=== PATIENT | female | born 1945 | race Caucasian/White ===

== ENCOUNTER 2020-07-31 07:12 | Emergency (ER) | payer BC, OTHER ==
[~2020-07-31] VITALS: Ht 152.4 cm; Wt 57.8 kg
[2020-07-31 07:19] VITALS: BP 162/70
== END 2020-07-31 08:10 | disposition home or self-care (01) ==
LOC: ER 07:13
DX: N81.2 Incomplete uterovaginal prolapse (principal)
CPT/HCPCS: 99284

== ENCOUNTER 2021-05-29 14:43 | Emergency (ER) | payer BC, OTHER ==
[~2021-05-29] VITALS: Ht 161.3 cm; Wt 56.0 kg
[2021-05-29] MEDS ORDERED: normal saline 1000ML IV soln IVB ONE (14:55)
[2021-05-29 15:32] LABS: BASOPHILS % (AUTO) 0.9 % (0-1); EOSINOPHILS % (AUTO) 0 % (0-6); HEMATOCRIT 41.9 % (35.0-45.0); HEMOGLOBIN 14.1 g/dl (12.0-16.0); LYMPHOCYTES # (AUTO) 0.6 X10'3 (1.1-4.8); LYMPHOCYTES % (AUTO) 19.1 % (21-51); MEAN CORPUSCULAR HEMOGLOBIN 28.9 PG (27.0-31.0); MEAN CORPUSCULAR HGB CONC 33.7 g/dL (33.0-36.5); MEAN CORPUSCULAR VOLUME 85.8 FL (78-98); MEAN PLATELET VOLUME 8.1 FL (7.4-10.4); MONOCYTES # (AUTO) 0.2 X10'3 (0-0.9); MONOCYTES % (AUTO) 6.7 % (2-12); NEUTROPHILS # (AUTO) 2.3 X10'3 (1.8-7.7); NEUTROPHILS % (AUTO) 73.3 % (42-75); PLATELET COUNT 149 X10'3 (140-440); RED BLOOD COUNT 4.89 X10'6 (4.20-5.60); RED CELL DISTRIBUTION WIDTH 14.4 % (11.5-14.5); WHITE BLOOD COUNT 3.1 X10'3 (4.5-11.0)
[2021-05-29 15:41] LABS: ALANINE AMINOTRANSFERASE 30 U/L (12-78); ALBUMIN 3.3 G/DL (3.4-5.0); ALBUMIN/GLOBULIN RATIO 0.9 (1.1-1.5); ALKALINE PHOSPHATASE 64 IU/L (46-116); ANION GAP 15 (8-16); ASPARTATE AMINO TRANSFERASE 78 U/L (10-37); BILIRUBIN,TOTAL 0.5 MG/DL (0.1-1.0); BLOOD UREA NITROGEN 24 MG/DL (7-18); BUN/CREATININE RATIO 26.7 (6.6-38.0); CALCIUM 8.1 MG/DL (8.5-10.1); CHLORIDE 98 MMOL/L (99-107); GLUCOSE 108 MG/DL (70-104); POTASSIUM 4.7 MMOL/L (3.5-5.1); SODIUM 133 MMOL/L (135-145); TOTAL CARBON DIOXIDE 19.8 MMOL/L (24-32); TOTAL PROTEIN 7.1 G/DL (6.4-8.2); eGFR 61 ML/MIN
[2021-05-29 16:45] VITALS: BP 130/65
== END 2021-05-29 17:02 | disposition home or self-care (01) ==
LOC: ER 14:45
DX: U07.1 COVID-19 (principal); R19.7 Diarrhea, unspecified; E86.0 Dehydration; R63.0 Anorexia; F17.200 Nicotine dependence, unspecified, uncomplicated
CPT/HCPCS: 36415; 80053; 85025; 87635; 99283; C9803; J7030

== ENCOUNTER 2021-06-09 08:44 | Inpatient (IN) | payer BC, OTHER ==
[~2021-06-09] VITALS: Ht 152.4 cm; Wt 55.0 kg
[2021-06-09] MEDS ORDERED: dexamethasone sod phosphate 10mg/ml inj IV STA (10:28)
[2021-06-09 10:38] LABS: BASOPHILS # (AUTO) 0.1 X10'3 (0-0.2); BASOPHILS % (AUTO) 0.4 % (0-1); EOSINOPHILS % (AUTO) 0.1 % (0-6); HEMATOCRIT 42.4 % (35.0-45.0); HEMOGLOBIN 14.9 g/dl (12.0-16.0); LYMPHOCYTES # (AUTO) 0.4 X10'3 (1.1-4.8); LYMPHOCYTES % (AUTO) 2.3 % (21-51); MEAN CORPUSCULAR HEMOGLOBIN 29.9 PG (27.0-31.0); MEAN CORPUSCULAR HGB CONC 35.1 g/dL (33.0-36.5); MEAN CORPUSCULAR VOLUME 85.1 FL (78-98); MEAN PLATELET VOLUME 8.7 FL (7.4-10.4); MONOCYTES # (AUTO) 0.7 X10'3 (0-0.9); MONOCYTES % (AUTO) 4.7 % (2-12); NEUTROPHILS # (AUTO) 14.4 X10'3 (1.8-7.7); NEUTROPHILS % (AUTO) 92.5 % (42-75); PLATELET COUNT 257 X10'3 (140-440); RED BLOOD COUNT 4.98 X10'6 (4.20-5.60); RED CELL DISTRIBUTION WIDTH 13.9 % (11.5-14.5); WHITE BLOOD COUNT 15.6 X10'3 (4.5-11.0)
[2021-06-09 10:47] LABS: AMMONIA < 10 UMOL/L (11-32)
[2021-06-09 10:48] LABS: ALANINE AMINOTRANSFERASE 30 U/L (12-78); ALBUMIN 2.1 G/DL (3.4-5.0); ALBUMIN/GLOBULIN RATIO 0.4 (1.1-1.5); ALKALINE PHOSPHATASE 123 IU/L (46-116); ANION GAP 15 (8-16); ASPARTATE AMINO TRANSFERASE 24 U/L (10-37); BILIRUBIN,TOTAL 0.9 MG/DL (0.1-1.0); BLOOD UREA NITROGEN 35 MG/DL (7-18); BUN/CREATININE RATIO 36.5 (6.6-38.0); CALCIUM 8.8 MG/DL (8.5-10.1); CHLORIDE 109 MMOL/L (99-107); CREATININE 0.96 MG/DL (0.40-0.90); GLUCOSE 148 MG/DL (70-104); POTASSIUM 3.4 MMOL/L (3.5-5.1); SODIUM 149 MMOL/L (135-145); TOTAL CARBON DIOXIDE 24.7 MMOL/L (24-32); TOTAL PROTEIN 7.7 G/DL (6.4-8.2); eGFR 57 ML/MIN
[2021-06-09 10:52] LABS: ETHANOL < 0.010 GM/DL (0.0-0.010); TROPONIN I < 0.04 NG/ML (0.0-0.05)
[2021-06-09 10:56] LABS: LACTIC SEPSIS 2.7 MMOL/L (0.4-2.0)
[2021-06-09 11:08] LABS: D-DIMER 8.87 MG/L FEU (0-0.50)
[2021-06-09] MEDS ORDERED: heparin 10,000 units/1 ML INJ IV ONE ×2 (11:30→11:35)
[2021-06-09] MEDS: heparin 25,000 UNIT/250ml bag 250 ML IV SCH ×2 (11:30→15:00)
--- NOTE | 2021-06-09 11:55 | NUR ---
PT PLACED IN SOFT WRIST RESTRAINTS PER MD ORDER FOR REMOVING OXYGEN
[2021-06-09 12:00] LABS: PARTIAL THROMBOPLASTIN TIME 29 SECONDS (22-32)
[2021-06-09] MEDS ORDERED: iohexol 350MG/ML 100ml bottle IV ONE (12:35)
--- NOTE | 2021-06-09 14:12 | NUR ---
PT BED CHANGED WHILE ON CT TABLE, RESTRAINTS PLACED BACK ON TO PT AND RETURNED TO ER.
--- NOTE | 2021-06-09 14:15 | NUR ---
AND A 20 G WAS PLACED IN RT AC AND WRAPPED WITH COBAN.
[2021-06-09 16:27] LABS: ABG BASE EXCESS -2.1 mmol/L (-2.0-2.0); ABG HCO3 19.1 mmol/L (22.0-26.0); ABG OXYGEN SATURATION 82.9 % (94-97); ABG PCO2 (T) 23.4 mmHg (32.0-45.0); ABG PO2 (T) 46.1 mmHg (75.0-100.0); ALLEN'S TEST POSITIVE; FCOHb 0.1 % (0.0-3.9); FMetHb 0.3 % (0.0-1.5); FO2Hb 82.6 % (94-97)
[2021-06-09] MEDS ORDERED: ESTR10TA9 VG (16:53)
[2021-06-09] MEDS ORDERED: ondansetron/PF 4mg/2ml inj IV PRN (17:30)
[2021-06-09] MEDS ORDERED: HYDROcodone/acetaminophen 10/325mg tab PO PRN (17:30)
[2021-06-09] MEDS ORDERED: potassium Cl 40MEQ/1/2NS 520ml 520 ML IV PRN ×2 (17:30)
[2021-06-09] MEDS ORDERED: magnesium 2GM in 50ml NS 50 ML IV PRN (17:30)
[2021-06-09] MEDS ORDERED: acetaminophen 650mg rectal suppository RC PRN (17:30)
[2021-06-09] MEDS ORDERED: potassium Cl 20 mEq SR tablet PO PRN ×2 (17:30)
[2021-06-09] MEDS ORDERED: HYDROcodone/acetaminophen 5mg/325mg tablet PO PRN (17:30)
[2021-06-09] MEDS ORDERED: morphine 2 MG/ML inj. syringe IV PRN (17:30)
[2021-06-09] MEDS ORDERED: magnesium hydroxide 30ml (MOM) UD suspension PO PRN (17:30)
[2021-06-09] MEDS ORDERED: mag hydrox/Alum hydrox/simeth 30ml oral suspension PO PRN (17:30)
[2021-06-09] MEDS ORDERED: PERFLUTREN PROTEIN-A MICROSPHR (Optison) 0.22 MG/ML 3ML VIAL IV PRN (17:30)
[2021-06-09] MEDS ORDERED: bisacodyl 10mg suppository rectal RC PRN (17:30)
[2021-06-09] MEDS ORDERED: magnesium 4gm in 100ml NS 100 ML IV PRN (17:30)
[2021-06-09] MEDS ORDERED: diphenhydrAMINE 25mg capsule PO PRN (17:30)
[2021-06-09] MEDS ORDERED: acetaminophen 325mg tablet PO PRN ×2 (17:30)
[2021-06-09] MEDS ORDERED: magnesium Cl slow-release 64mg tablet PO PRN (17:30)
--- NOTE | 2021-06-09 17:41 | NUR ---
PT CONSSTANTLY PULLS OXYGEN OFF. PT CURRENTLY RECEIVING HFNC AT 12 LITERS AND NRB
[2021-06-09] MEDS ORDERED: haloperidol lactate 5mg/ml inj IM ONE (18:45)
[2021-06-09 18:56] LABS: HEMOGLOBIN A1C 6.7 % (4.5-6.2)
[2021-06-09] MEDS: LORazepam 2 mg/ml vial IV PRN (19:00)
--- NOTE | 2021-06-09 19:25 | NUR ---
Patient given Haldol 5 mg IM and 1 mg Ativan IV. Patient is now sleeping vital signs improved.
[2021-06-09] MEDS: K and/or MAG REPLACEMENT MC SCH (20:00)
[2021-06-09] MEDS: docusate sod 100mg capsule PO SCH (20:00)
[2021-06-09 21:44] LABS: PARTIAL THROMBOPLASTIN TIME 128 SECONDS (22-32)
--- NOTE | 2021-06-09 21:59 | NUR ---
PTT 128 Heparin drip at 990 units stopped for 120 minutes per protocol at 2150.
[2021-06-10] MEDS: heparin 25,000 UNIT/250ml bag 250 ML IV SCH ×3 (00:22→23:21)
[2021-06-10] MEDS: dexamethasone 4mg/ml inj IV SCH ×2 (00:25→11:33)
[2021-06-10 02:00] VITALS: BP 115/73
[2021-06-10 03:06] LABS: D-DIMER 2.93 MG/L FEU (0-0.50); PARTIAL THROMBOPLASTIN TIME 32 SECONDS (22-32)
[2021-06-10] MEDS: heparin 10,000 units/1 ML INJ IV PRN (03:44)
--- NOTE | 2021-06-10 03:59 | NUR ---
PTT result 32. Gave heparin 4000U IV bolus and IV rate increased to 1000U/Hr. PTT ordered for 06/10/21 at 10:00. Unable to scan bag for administration.
[2021-06-10 06:00] VITALS: BP 115/74
[2021-06-10] MEDS: normal saline 1000ml 1,000 ML IV SCH ×2 (06:50→11:23)
--- NOTE | 2021-06-10 06:55 | NUR ---
Patient in room [facility] 4015B. I have received report from ASHISH BARTON and had the opportunity to ask questions and assume patient care.
[2021-06-10] MEDS: docusate sod 100mg capsule PO SCH ×2 (08:00→20:00)
[2021-06-10] MEDS: K and/or MAG REPLACEMENT MC SCH ×2 (08:00→20:00)
[2021-06-10 09:21] LABS: BASOPHILS % (AUTO) 0.2 % (0-1); EOSINOPHILS % (AUTO) 0.1 % (0-6); HEMATOCRIT 41.5 % (35.0-45.0); HEMOGLOBIN 13.7 g/dl (12.0-16.0); LYMPHOCYTES # (AUTO) 0.6 X10'3 (1.1-4.8); MEAN CORPUSCULAR HEMOGLOBIN 29.8 PG (27.0-31.0); MEAN CORPUSCULAR VOLUME 90.5 FL (78-98); MEAN PLATELET VOLUME 9.3 FL (7.4-10.4); MONOCYTES # (AUTO) 0.6 X10'3 (0-0.9); NEUTROPHILS # (AUTO) 13.4 X10'3 (1.8-7.7); NEUTROPHILS % (AUTO) 91.7 % (42-75); PLATELET COUNT 206 X10'3 (140-440); RED BLOOD COUNT 4.59 X10'6 (4.20-5.60); RED CELL DISTRIBUTION WIDTH 14.7 % (11.5-14.5); WHITE BLOOD COUNT 14.6 X10'3 (4.5-11.0)
[2021-06-10 09:57] LABS: ALANINE AMINOTRANSFERASE 19 U/L (12-78); ALBUMIN 1.8 G/DL (3.4-5.0); ALBUMIN/GLOBULIN RATIO 0.4 (1.1-1.5); ALKALINE PHOSPHATASE 83 IU/L (46-116); ANION GAP 13 (8-16); ASPARTATE AMINO TRANSFERASE 21 U/L (10-37); BILIRUBIN,TOTAL 0.7 MG/DL (0.1-1.0); BLOOD UREA NITROGEN 35 MG/DL (7-18); BUN/CREATININE RATIO 41.7 (6.6-38.0); CALCIUM 8.7 MG/DL (8.5-10.1); CHLORIDE 116 MMOL/L (99-107); CHOL/HDL RATIO 6.5 (0.00-4.99); CHOLESTEROL 129 MG/DL (0-200); CREATININE 0.84 MG/DL (0.40-0.90); GLUCOSE 176 MG/DL (70-104); HDL CHOLESTEROL 20 MG/DL (35-60); LACTATE DEHYDROGENASE 347 U/L (81-234); LDL CHOLESTEROL 88 MG/DL (50-100); MAGNESIUM 2.8 MG/DL (1.5-2.4); PHOSPHORUS 4.5 MG/DL (2.3-4.5); POTASSIUM 3.9 MMOL/L (3.5-5.1); SODIUM 153 MMOL/L (135-145); TOTAL CARBON DIOXIDE 24.2 MMOL/L (24-32); TOTAL PROTEIN 6.8 G/DL (6.4-8.2); TRIGLYCERIDES 115 MG/DL (20-135); eGFR 66 ML/MIN
[2021-06-10 09:58] LABS: C-REACTIVE PROTEIN 25.61 MG/DL (0.0-0.5)
[2021-06-10 10:00] VITALS: BP 125/64
[2021-06-10 10:23] LABS: PARTIAL THROMBOPLASTIN TIME 45 SECONDS (22-32)
[2021-06-10] MEDS: LORazepam 2 mg/ml vial IV PRN ×3 (11:18→23:02)
--- NOTE | 2021-06-10 13:20 | NUR ---
Luis Consult: Luis Sultana w/ open area to buttocks pending WOC eval per EMR. Will monitor for WOC assessment and nutrition intervention needs. Addendum: 06/10/21 at [address] Amended: Links added.
[2021-06-10 14:00] VITALS: BP 137/78
--- NOTE | 2021-06-10 16:10 | NUR ---
Page Sent PAGER ID: [phone] MESSAGE: ANA [phone] RE: LAURAARACELI [id number] PT HAD A PTT DRAW AT 1600, LAB COULD NOT DRAW HER DUE TO DEHYDRATION, TRIED TWICE. WHEN SHOULD I ORDER ANOTHER REDRAW? THANK YOU!
[2021-06-10] MEDS ORDERED: normal saline 1000ml 1,000 ML IV ONE (16:15)
[2021-06-10 17:50] VITALS: BP 128/71
[2021-06-10] MEDS ORDERED: LIDOcaine 2% 10ml TOPICAL JELLY (Urojet) TP ONE (18:10)
[2021-06-10] MEDS: CefTRIAXone/D5W-Rocephin 1gm 50 ML IV SCH (18:30)
[2021-06-10] MEDS: dextrose 5%-water 1,000 ML IV SCH (18:30)
[2021-06-10] MEDS: azithromycin/NS 500mg/250ml 250 ML IV SCH (18:30)
--- NOTE | 2021-06-10 18:52 | NUR ---
Problems reprioritized. Patient report given, questions answered & plan of care reviewed with ASHISH HERRERA.
[2021-06-11] MEDS: dexamethasone 4mg/ml inj IV SCH ×3 (00:55→21:01)
[2021-06-11] MEDS: morphine 2 MG/ML inj. syringe IV PRN ×2 (00:55→14:37)
[2021-06-11] MEDS: LORazepam 2 mg/ml vial IV PRN ×4 (03:41→21:01)
[2021-06-11 06:00] VITALS: BP 128/71
--- NOTE | 2021-06-11 06:35 | NUR ---
Patient in room [facility] 4015B. I have received report from ASHISH HERRERA and had the opportunity to ask questions and assume patient care.
--- NOTE | 2021-06-11 07:22 | NUR ---
Page Sent PAGER ID: [phone] MESSAGE: ANA [phone] RE: ARACELI SANCHEZ [id number] DR. SALOMON ORDERED A PICC FOR THE PT TO BE PLACED TODAY. CAN I GET A CONSENT SIGNED PLEASE? THANK YOU!
[2021-06-11] MEDS: docusate sod 100mg capsule PO SCH ×2 (07:37→21:02)
[2021-06-11] MEDS: K and/or MAG REPLACEMENT MC SCH ×2 (08:00→20:00)
[2021-06-11 08:33] LABS: BASOPHILS % (AUTO) 0.2 % (0-1); EOSINOPHILS % (AUTO) 0 % (0-6); HEMATOCRIT 37.6 % (35.0-45.0); HEMOGLOBIN 12.6 g/dl (12.0-16.0); LYMPHOCYTES # (AUTO) 0.6 X10'3 (1.1-4.8); MEAN CORPUSCULAR HEMOGLOBIN 29.6 PG (27.0-31.0); MEAN CORPUSCULAR HGB CONC 33.4 g/dL (33.0-36.5); MEAN CORPUSCULAR VOLUME 88.8 FL (78-98); MEAN PLATELET VOLUME 9.7 FL (7.4-10.4); MONOCYTES # (AUTO) 0.6 X10'3 (0-0.9); NEUTROPHILS # (AUTO) 14.3 X10'3 (1.8-7.7); NEUTROPHILS % (AUTO) 91.8 % (42-75); PLATELET COUNT 201 X10'3 (140-440); RED BLOOD COUNT 4.24 X10'6 (4.20-5.60); RED CELL DISTRIBUTION WIDTH 14.4 % (11.5-14.5); WHITE BLOOD COUNT 15.6 X10'3 (4.5-11.0)
[2021-06-11 09:25] LABS: ALANINE AMINOTRANSFERASE 21 U/L (12-78); ALBUMIN 1.8 G/DL (3.4-5.0); ALBUMIN/GLOBULIN RATIO 0.4 (1.1-1.5); ALKALINE PHOSPHATASE 81 IU/L (46-116); ANION GAP 9 (8-16); BILIRUBIN,TOTAL 0.6 MG/DL (0.1-1.0); BLOOD UREA NITROGEN 34 MG/DL (7-18); BUN/CREATININE RATIO 37.4 (6.6-38.0); C-REACTIVE PROTEIN 17.69 MG/DL (0.0-0.5); CALCIUM 8.4 MG/DL (8.5-10.1); CHLORIDE 121 MMOL/L (99-107); CREATININE 0.91 MG/DL (0.40-0.90); GLUCOSE 206 MG/DL (70-104); MAGNESIUM 2.4 MG/DL (1.5-2.4); TOTAL CARBON DIOXIDE 24.7 MMOL/L (24-32); TOTAL PROTEIN 6.5 G/DL (6.4-8.2); eGFR 60 ML/MIN
[2021-06-11 09:30] LABS: SODIUM 155 MMOL/L (135-145)
--- NOTE | 2021-06-11 09:36 | NUR ---
Page Sent PAGER ID: [phone] MESSAGE: ANA [phone] RE: ARACELI SANCHEZ [id number] PT'S SODIUM IS 155. THANKS
[2021-06-11 09:39] LABS: ASPARTATE AMINO TRANSFERASE 26 U/L (10-37); LACTATE DEHYDROGENASE 448 U/L (81-234); PHOSPHORUS 3.1 MG/DL (2.3-4.5)
[2021-06-11] MEDS: dextrose 5%-water 1,000 ML IV SCH (09:42)
[2021-06-11 10:00] VITALS: BP 156/104
[2021-06-11 10:05] LABS: D-DIMER 3.81 MG/L FEU (0-0.50)
[2021-06-11] MEDS: CefTRIAXone/D5W-Rocephin 1gm 50 ML IV SCH (13:04)
[2021-06-11 14:00] VITALS: BP 172/81
[2021-06-11 14:20] LABS: URINE AMPHETAMINE SCREEN NEGATIVE (Neg); URINE BARBITUATE SCREEN NEGATIVE (Neg); URINE BENZODIAZEPINES SCREEN NEGATIVE (Neg); URINE CANNABINOID SCREEN NEGATIVE (Neg); URINE COCAINE SCREEN NEGATIVE (Neg); URINE METHADONE SCREEN NEGATIVE (Neg); URINE OPIATE SCREEN POSITIVE (Neg); URINE PHENCYCLIDINE SCREEN NEGATIVE (Neg)
[2021-06-11 14:33] LABS: CLARITY,URINE SLIGHTLY CLOUDY (Clear); COLOR,URINE YELLOW (Yellow); UA COLLECTION TYPE STRAIGHT CATH
[2021-06-11 14:34] LABS: GLUCOSE, URINE NEGATIVE (Neg); KETONES,URINE NEGATIVE (Neg); LEUKOCYTE ESTERASE ,URINE NEGATIVE (Neg); NITRITES, URINE NEGATIVE (Neg); OCCULT BLOOD,URINE MODERATE (Neg); PROTEIN,URINE TRACE mg/dl (Neg)
[2021-06-11 14:36] LABS: RBC,URINE 20-50 /HPF (0-2)
[2021-06-11] MEDS: azithromycin/NS 500mg/250ml 250 ML IV SCH (14:36)
[2021-06-11 14:37] LABS: BACTERIA,URINE FEW /HPF (Neg); MUCUS STRANDS FEW /LPF (Neg); SQUAMOUS EPITHELIAL CELL,UR FEW /LPF (FEW)
[2021-06-11 14:39] LABS: URINE AMPHETAMINE SCREEN NEGATIVE (Neg); URINE BARBITUATE SCREEN NEGATIVE (Neg); URINE BENZODIAZEPINES SCREEN NEGATIVE (Neg); URINE CANNABINOID SCREEN NEGATIVE (Neg); URINE COCAINE SCREEN NEGATIVE (Neg); URINE METHADONE SCREEN NEGATIVE (Neg); URINE OPIATE SCREEN POSITIVE (Neg); URINE PHENCYCLIDINE SCREEN NEGATIVE (Neg)
[2021-06-11 18:00] VITALS: BP 178/88
--- NOTE | 2021-06-11 18:53 | NUR ---
Problems reprioritized. Patient report given, questions answered & plan of care reviewed with ASHISH BARTON.
--- NOTE | 2021-06-11 21:00 | NUR ---
Lab result PTT 36. Per protocol Heparin 2500units IV bolus administered and heparin drip rate increased to 1100units/hr.
[2021-06-11] MEDS: heparin 10,000 units/1 ML INJ IV PRN (21:39)
[2021-06-11 22:00] VITALS: BP 178/81
[2021-06-12 02:00] VITALS: BP 161/85
[2021-06-12] MEDS: dextrose 5%-water 1,000 ML IV SCH ×3 (02:12→23:50)
[2021-06-12] MEDS: LORazepam 2 mg/ml vial IV PRN (02:12)
[2021-06-12 07:35] LABS: BASOPHILS # (AUTO) 0.1 X10'3 (0-0.2); BASOPHILS % (AUTO) 0.4 % (0-1); EOSINOPHILS % (AUTO) 0.1 % (0-6); HEMOGLOBIN 12.3 g/dl (12.0-16.0); LYMPHOCYTES # (AUTO) 0.7 X10'3 (1.1-4.8); LYMPHOCYTES % (AUTO) 3.8 % (21-51); MEAN CORPUSCULAR HEMOGLOBIN 29.3 PG (27.0-31.0); MEAN CORPUSCULAR HGB CONC 33.4 g/dL (33.0-36.5); MEAN CORPUSCULAR VOLUME 87.8 FL (78-98); MEAN PLATELET VOLUME 9.3 FL (7.4-10.4); MONOCYTES # (AUTO) 0.8 X10'3 (0-0.9); MONOCYTES % (AUTO) 4.3 % (2-12); NEUTROPHILS # (AUTO) 15.9 X10'3 (1.8-7.7); NEUTROPHILS % (AUTO) 91.4 % (42-75); PLATELET COUNT 182 X10'3 (140-440); RED BLOOD COUNT 4.21 X10'6 (4.20-5.60); RED CELL DISTRIBUTION WIDTH 14.1 % (11.5-14.5); WHITE BLOOD COUNT 17.4 X10'3 (4.5-11.0)
[2021-06-12 07:36] LABS: D-DIMER 3.43 MG/L FEU (0-0.50)
[2021-06-12 07:53] LABS: ALANINE AMINOTRANSFERASE 20 U/L (12-78); ALBUMIN 1.7 G/DL (3.4-5.0); ALBUMIN/GLOBULIN RATIO 0.4 (1.1-1.5); ALKALINE PHOSPHATASE 157 IU/L (46-116); ANION GAP 12 (8-16); ASPARTATE AMINO TRANSFERASE 19 U/L (10-37); BILIRUBIN,TOTAL 0.7 MG/DL (0.1-1.0); BLOOD UREA NITROGEN 22 MG/DL (7-18); BUN/CREATININE RATIO 26.2 (6.6-38.0); C-REACTIVE PROTEIN 17.38 MG/DL (0.0-0.5); CHLORIDE 112 MMOL/L (99-107); CREATININE 0.84 MG/DL (0.40-0.90); GLUCOSE 211 MG/DL (70-104); LACTATE DEHYDROGENASE 545 U/L (81-234); MAGNESIUM 1.9 MG/DL (1.5-2.4); PHOSPHORUS 2.7 MG/DL (2.3-4.5); POTASSIUM 3.6 MMOL/L (3.5-5.1); SODIUM 149 MMOL/L (135-145); TOTAL CARBON DIOXIDE 25.4 MMOL/L (24-32); TOTAL PROTEIN 6.1 G/DL (6.4-8.2); eGFR 66 ML/MIN
[2021-06-12] MEDS: K and/or MAG REPLACEMENT MC SCH ×2 (08:00→20:00)
[2021-06-12] MEDS: docusate sod 100mg capsule PO SCH ×2 (08:00→20:36)
[2021-06-12] MEDS: dexamethasone 4mg/ml inj IV SCH ×2 (09:39→20:37)
[2021-06-12] MEDS: CefTRIAXone/D5W-Rocephin 1gm 50 ML IV SCH (09:39)
[2021-06-12] MEDS: azithromycin/NS 500mg/250ml 250 ML IV SCH (10:30)
[2021-06-12] MEDS: heparin 25,000 UNIT/250ml bag 250 ML IV SCH ×2 (15:09→15:18)
[2021-06-12 18:30] VITALS: BP 157/88
--- NOTE | 2021-06-12 18:30 | NUR ---
Patient in room [facility] 4015. I have received report from ASHISH rene and had the opportunity to ask questions and assume patient care. Addendum: 06/12/21 at 2106 by Ousmane Hendricks RN Amended: Links added.
[2021-06-12] MEDS: lactobacillus rhamnosus 10,000 MMU CELLS/CAPSULE PO SCH (20:36)
--- NOTE | 2021-06-12 21:53 | NUR ---
lab her heparin off for 10 minutes Addendum: 06/12/21 at 2154 by Ousmane Hendricks RN Amended: Links added.
[2021-06-12 22:00] VITALS: BP 146/73
--- NOTE | 2021-06-12 23:39 | NUR ---
pt prone to left side, sat 94%. inc large amt stool, isabela care, dressing to sacrum changed. sacrum excoriated open, skin excoriated and open y rectum, barrier cream applied. kept off sacrum. Addendum: 06/12/21 at 2341 by Ousmane Hendricks RN Amended: Links added.
[2021-06-13] MEDS: heparin 25,000 UNIT/250ml bag 250 ML IV SCH (01:01)
[2021-06-13 02:00] VITALS: BP 157/73
--- NOTE | 2021-06-13 06:41 | NUR ---
Problems reprioritized. Patient report given, questions answered & plan of care reviewed with ASHISH RODRIGUEZ. Addendum: 06/13/21 at 0642 by Ousmane Hendricks RN Amended: Links added.
--- NOTE | 2021-06-13 06:58 | NUR ---
Patient in room [facility] 4015. I have received report from Araceli HINOJOSA and had the opportunity to ask questions and assume patient care.
[2021-06-13] MEDS: azithromycin/NS 500mg/250ml 250 ML IV SCH (08:22)
[2021-06-13] MEDS: CefTRIAXone/D5W-Rocephin 1gm 50 ML IV SCH (08:22)
[2021-06-13] MEDS: lactobacillus rhamnosus 10,000 MMU CELLS/CAPSULE PO SCH ×2 (08:23→21:19)
[2021-06-13] MEDS: docusate sod 100mg capsule PO SCH ×2 (08:23→21:19)
[2021-06-13] MEDS: dexamethasone 4mg/ml inj IV SCH ×2 (08:23→21:19)
[2021-06-13 08:37] LABS: BASOPHILS % (AUTO) 0.3 % (0-1); EOSINOPHILS % (AUTO) 0 % (0-6); HEMATOCRIT 36.5 % (35.0-45.0); HEMOGLOBIN 12.3 g/dl (12.0-16.0); LYMPHOCYTES # (AUTO) 0.8 X10'3 (1.1-4.8); LYMPHOCYTES % (AUTO) 5.1 % (21-51); MEAN CORPUSCULAR HEMOGLOBIN 29.2 PG (27.0-31.0); MEAN CORPUSCULAR HGB CONC 33.8 g/dL (33.0-36.5); MEAN CORPUSCULAR VOLUME 86.4 FL (78-98); MONOCYTES # (AUTO) 0.6 X10'3 (0-0.9); MONOCYTES % (AUTO) 4.4 % (2-12); NEUTROPHILS # (AUTO) 13.4 X10'3 (1.8-7.7); NEUTROPHILS % (AUTO) 90.2 % (42-75); PLATELET COUNT 128 X10'3 (140-440); RED BLOOD COUNT 4.22 X10'6 (4.20-5.60); RED CELL DISTRIBUTION WIDTH 13.9 % (11.5-14.5); WHITE BLOOD COUNT 14.9 X10'3 (4.5-11.0)
[2021-06-13 08:43] LABS: ALANINE AMINOTRANSFERASE 24 U/L (12-78); ALBUMIN 1.6 G/DL (3.4-5.0); ALBUMIN/GLOBULIN RATIO 0.4 (1.1-1.5); ALKALINE PHOSPHATASE 88 IU/L (46-116); ANION GAP 10 (8-16); ASPARTATE AMINO TRANSFERASE 23 U/L (10-37); BILIRUBIN,TOTAL 0.7 MG/DL (0.1-1.0); BLOOD UREA NITROGEN 19 MG/DL (7-18); BUN/CREATININE RATIO 24.7 (6.6-38.0); C-REACTIVE PROTEIN 18.03 MG/DL (0.0-0.5); CHLORIDE 112 MMOL/L (99-107); CREATININE 0.77 MG/DL (0.40-0.90); GLUCOSE 205 MG/DL (70-104); LACTATE DEHYDROGENASE 429 U/L (81-234); PHOSPHORUS 2.9 MG/DL (2.3-4.5); POTASSIUM 3.3 MMOL/L (3.5-5.1); SODIUM 148 MMOL/L (135-145); TOTAL CARBON DIOXIDE 26.3 MMOL/L (24-32); TOTAL PROTEIN 6.1 G/DL (6.4-8.2); eGFR 73 ML/MIN
[2021-06-13 09:52] LABS: D-DIMER 4.01 MG/L FEU (0-0.50)
[2021-06-13 10:00] VITALS: BP 150/82
[2021-06-13] MEDS ORDERED: potassium Cl 20 mEq SR tablet PO PRN (10:25)
[2021-06-13] MEDS ORDERED: magnesium Cl slow-release 64mg tablet PO PRN (10:25)
[2021-06-13] MEDS ORDERED: potassium Cl 40MEQ/1/2NS 520ml 520 ML IV PRN (10:25)
[2021-06-13] MEDS ORDERED: magnesium 4gm in 100ml NS 100 ML IV PRN (10:25)
--- NOTE | 2021-06-13 10:33 | NUR ---
Initial: Pt admit DX COVID-19 PNA, acute PE, and possible new onset DM A1C 6.7% w/ no prior hx per MD note. Current A1C appropriate given pt age and pt Glu 205-211mg/dl likely r/t D5/water at 75ml/hr (306kcals/day) in addition to receiving decadron. Pt PO 0% heart healthy diet meals w/ max assistance past 3 days since admit not meeting needs. Noted remains ALOC AOx2 confused not talking in addition to 15L high flow requirements per EMR. ALOC and respiratory status likely impacting PO. RD recommends [employer] BSS given ALOC; if unsafe PO would benefit from EN to optimize nutrition status. Serum Na 148 down from 155 previously w/ D5/water. No BM since admit 06/09 receiving routine colace. Luis 11 w/ skin excoriation to sacrum noted WOC note pending in EMR. Will continue to monitor for [employer] recs and PO trends/nutrition support needs this admit. Rec: 1. liberalize to regular diet per [employer]/MD recs given poor PO hx 2. IF unsafe/prolonged poor PO; EN to meet nutrition needs 3. routine bowel care; at least 4 days constipation 4. scaled wt this admit; subsequent weekly wts 5. possible new onset DM; education not indicated currently w/ A1C 6.7% and ALOC Addendum: 06/13/21 at [address] Amended: Links added.
[2021-06-13] MEDS: dextrose 5%-water 1,000 ML IV SCH (11:30)
[2021-06-13] MEDS: K and/or MAG REPLACEMENT MC SCH ×2 (11:37→20:00)
[2021-06-13] MEDS: potassium Cl 20 mEq SR tablet PO PRN ×3 (11:37→21:20)
[2021-06-13 14:00] VITALS: BP 157/85
--- NOTE | 2021-06-13 17:10 | NUR ---
Rash and redness noted to groin area. wound care consult made. Potassium level is 3.3, potassium replacement protocol initiated.
--- NOTE | 2021-06-13 19:24 | NUR ---
Problems reprioritized. Patient report given, questions answered & plan of care reviewed with Georgie HINOJOSA.
[2021-06-13] MEDS: LORazepam 2 mg/ml vial IV PRN (20:21)
[2021-06-13 22:00] VITALS: BP 148/102
[2021-06-14] MEDS: dextrose 5%-water 1,000 ML IV SCH ×2 (01:23→13:17)
[2021-06-14 02:00] VITALS: BP 150/93
[2021-06-14] MEDS: heparin 25,000 UNIT/250ml bag 250 ML IV SCH (02:49)
[2021-06-14 04:51] LABS: BASOPHILS % (AUTO) 0.3 % (0-1); EOSINOPHILS % (AUTO) 0.1 % (0-6); HEMATOCRIT 33.8 % (35.0-45.0); HEMOGLOBIN 11.4 g/dl (12.0-16.0); LYMPHOCYTES # (AUTO) 0.8 X10'3 (1.1-4.8); LYMPHOCYTES % (AUTO) 4.4 % (21-51); MEAN CORPUSCULAR HEMOGLOBIN 29.3 PG (27.0-31.0); MEAN CORPUSCULAR HGB CONC 33.7 g/dL (33.0-36.5); MEAN CORPUSCULAR VOLUME 86.7 FL (78-98); MONOCYTES # (AUTO) 0.7 X10'3 (0-0.9); MONOCYTES % (AUTO) 4.2 % (2-12); NEUTROPHILS # (AUTO) 15.5 X10'3 (1.8-7.7); PLATELET COUNT 127 X10'3 (140-440); RED CELL DISTRIBUTION WIDTH 14.2 % (11.5-14.5)
[2021-06-14 04:59] LABS: D-DIMER 3.45 MG/L FEU (0-0.50)
[2021-06-14 05:00] LABS: ALANINE AMINOTRANSFERASE 30 U/L (12-78); ALBUMIN 1.6 G/DL (3.4-5.0); ALBUMIN/GLOBULIN RATIO 0.4 (1.1-1.5); ALKALINE PHOSPHATASE 78 IU/L (46-116); ANION GAP 10 (8-16); ASPARTATE AMINO TRANSFERASE 30 U/L (10-37); BILIRUBIN,TOTAL 0.7 MG/DL (0.1-1.0); BLOOD UREA NITROGEN 13 MG/DL (7-18); BUN/CREATININE RATIO 17.1 (6.6-38.0); C-REACTIVE PROTEIN 10.17 MG/DL (0.0-0.5); CALCIUM 7.8 MG/DL (8.5-10.1); CHLORIDE 105 MMOL/L (99-107); CREATININE 0.76 MG/DL (0.40-0.90); GLUCOSE 212 MG/DL (70-104); LACTATE DEHYDROGENASE 379 U/L (81-234); MAGNESIUM 1.7 MG/DL (1.5-2.4); PHOSPHORUS 2.6 MG/DL (2.3-4.5); POTASSIUM 3.6 MMOL/L (3.5-5.1); SODIUM 139 MMOL/L (135-145); TOTAL CARBON DIOXIDE 24.4 MMOL/L (24-32); eGFR 74 ML/MIN
[2021-06-14] MEDS ORDERED: amLODIPine 2.5mg tablet PO ONE (05:55)
[2021-06-14 06:00] VITALS: BP 177/98
--- NOTE | 2021-06-14 06:30 | NUR ---
Patient in room [facility] 4015. I have received report from Kelsey HINOJOSA and had the opportunity to ask questions and assume patient care.
--- NOTE | 2021-06-14 06:31 | NUR ---
Problems reprioritized. Patient report given, questions answered & plan of care reviewed with ASHISH Kingsley.
[2021-06-14] MEDS: K and/or MAG REPLACEMENT MC SCH ×2 (08:00→19:22)
[2021-06-14] MEDS: CefTRIAXone/D5W-Rocephin 1gm 50 ML IV SCH (09:25)
[2021-06-14] MEDS: docusate sod 100mg capsule PO SCH ×2 (09:27→19:22)
[2021-06-14] MEDS: dexamethasone 4mg/ml inj IV SCH ×2 (09:27→19:22)
[2021-06-14] MEDS: lactobacillus rhamnosus 10,000 MMU CELLS/CAPSULE PO SCH ×2 (09:28→19:22)
[2021-06-14 10:00] VITALS: BP 144/85
--- NOTE | 2021-06-14 10:11 | NUR ---
PAGER ID: [phone] MESSAGE: Teetee [phone]: Patient Margaret Mcclure, [id number]: vital sign is 180/109, 92, SO2 is 85% on 15 L high flow. I add a non rebreather at 10L, SO2 now is 94%. Patient is now NPO after speech evaluation this morning.
[2021-06-14 14:00] VITALS: BP 134/79
[2021-06-14 18:00] VITALS: BP 125/78
--- NOTE | 2021-06-14 18:41 | NUR ---
Problems reprioritized. Patient report given, questions answered & plan of care reviewed with Blessing HINOJOSA.
--- NOTE | 2021-06-14 18:43 | NUR ---
Patient in room [facility] 4015. I have received report from ASHISH Kuhn and had the opportunity to ask questions and assume patient care.
[2021-06-14] MEDS: LORazepam 2 mg/ml vial IV PRN (20:13)
[2021-06-14 22:00] VITALS: BP 126/70
[2021-06-15 02:00] VITALS: BP 113/59
[2021-06-15] MEDS: dextrose 5%-water 1,000 ML IV SCH (03:11)
--- NOTE | 2021-06-15 06:20 | NUR ---
Problems reprioritized. Patient report given, questions answered & plan of care reviewed with ASHISH Benton.
--- NOTE | 2021-06-15 06:30 | NUR ---
Patient in room [facility] 4015. I have received report from Gaurav HINOJOSA and had the opportunity to ask questions and assume patient care.
[2021-06-15] MEDS: K and/or MAG REPLACEMENT MC SCH ×2 (08:00→19:19)
[2021-06-15] MEDS: dexamethasone 4mg/ml inj IV SCH ×2 (08:29→19:22)
[2021-06-15] MEDS: docusate sod 100mg capsule PO SCH ×2 (08:29→19:22)
[2021-06-15] MEDS: lactobacillus rhamnosus 10,000 MMU CELLS/CAPSULE PO SCH ×2 (08:29→19:22)
[2021-06-15] MEDS: CefTRIAXone/D5W-Rocephin 1gm 50 ML IV SCH (08:30)
[2021-06-15] MEDS: heparin 25,000 UNIT/250ml bag 250 ML IV SCH (09:53)
[2021-06-15 10:00] VITALS: BP 150/79
[2021-06-15 14:00] VITALS: BP 141/79
[2021-06-15 18:00] VITALS: BP 144/76
--- NOTE | 2021-06-15 18:32 | NUR ---
Problems reprioritized. Patient report given, questions answered & plan of care reviewed with Georgie HINOJOSA.
--- NOTE | 2021-06-15 18:36 | NUR ---
Patient in room [facility] 4015. I have received report from ASHISH Benton and had the opportunity to ask questions and assume patient care.
[2021-06-15] MEDS: nystatin 15 GM powder TP SCH (19:22)
[2021-06-15] MEDS: LORazepam 2 mg/ml vial IV PRN (20:41)
[2021-06-15] MEDS: heparin 10,000 units/1 ML INJ IV PRN (21:15)
[2021-06-15 22:00] VITALS: BP 158/72
[2021-06-16] MEDS: dextrose 5%-water 1,000 ML IV SCH ×2 (00:09→16:51)
[2021-06-16 02:00] VITALS: BP 156/66
[2021-06-16 03:50] LABS: D-DIMER 2.78 MG/L FEU (0-0.50)
[2021-06-16 06:00] VITALS: BP 140/64
--- NOTE | 2021-06-16 06:18 | NUR ---
Problems reprioritized. Patient report given, questions answered & plan of care reviewed with ASHISH Kingsley.
[2021-06-16] MEDS: K and/or MAG REPLACEMENT MC SCH ×2 (08:00→20:00)
[2021-06-16] MEDS: lactobacillus rhamnosus 10,000 MMU CELLS/CAPSULE PO SCH ×2 (08:06→23:01)
[2021-06-16] MEDS: docusate sod 100mg capsule PO SCH ×2 (08:06→23:01)
[2021-06-16] MEDS: dexamethasone 4mg/ml inj IV SCH ×2 (08:07→23:01)
[2021-06-16] MEDS: CefTRIAXone/D5W-Rocephin 1gm 50 ML IV SCH (08:07)
[2021-06-16] MEDS: nystatin 15 GM powder TP SCH ×3 (08:07→21:00)
[2021-06-16 08:10] LABS: BASOPHILS # (AUTO) 0.1 X10'3 (0-0.2); BASOPHILS % (AUTO) 0.4 % (0-1); EOSINOPHILS % (AUTO) 0.2 % (0-6); HEMATOCRIT 35.2 % (35.0-45.0); HEMOGLOBIN 11.7 g/dl (12.0-16.0); MEAN CORPUSCULAR HEMOGLOBIN 28.9 PG (27.0-31.0); MEAN CORPUSCULAR HGB CONC 33.3 g/dL (33.0-36.5); MEAN CORPUSCULAR VOLUME 86.8 FL (78-98); MEAN PLATELET VOLUME 10.5 FL (7.4-10.4); MONOCYTES # (AUTO) 0.9 X10'3 (0-0.9); MONOCYTES % (AUTO) 5.3 % (2-12); NEUTROPHILS # (AUTO) 14.5 X10'3 (1.8-7.7); NEUTROPHILS % (AUTO) 88.1 % (42-75); PLATELET COUNT 117 X10'3 (140-440); RED BLOOD COUNT 4.05 X10'6 (4.20-5.60); RED CELL DISTRIBUTION WIDTH 13.7 % (11.5-14.5); WHITE BLOOD COUNT 16.5 X10'3 (4.5-11.0)
[2021-06-16 08:31] LABS: ALANINE AMINOTRANSFERASE 43 U/L (12-78); ALBUMIN 1.5 G/DL (3.4-5.0); ALBUMIN/GLOBULIN RATIO 0.3 (1.1-1.5); ALKALINE PHOSPHATASE 89 IU/L (46-116); ANION GAP 9 (8-16); ASPARTATE AMINO TRANSFERASE 26 U/L (10-37); BILIRUBIN,TOTAL 0.5 MG/DL (0.1-1.0); BLOOD UREA NITROGEN 16 MG/DL (7-18); BUN/CREATININE RATIO 24.2 (6.6-38.0); C-REACTIVE PROTEIN 13.64 MG/DL (0.0-0.5); CHLORIDE 102 MMOL/L (99-107); CREATININE 0.66 MG/DL (0.40-0.90); GLUCOSE 146 MG/DL (70-104); LACTATE DEHYDROGENASE 448 U/L (81-234); MAGNESIUM 1.9 MG/DL (1.5-2.4); POTASSIUM 3.8 MMOL/L (3.5-5.1); SODIUM 136 MMOL/L (135-145); TOTAL CARBON DIOXIDE 25.2 MMOL/L (24-32); TOTAL PROTEIN 5.9 G/DL (6.4-8.2); eGFR 88 ML/MIN
[2021-06-16 11:25] LABS: PLATELET ESTIMATE DECREASED; TOTAL CELLS COUNTED 100
[2021-06-16] MEDS: guaiFENesin ER 600mg tablet PO SCH ×2 (13:01→23:00)
[2021-06-16] MEDS: heparin 25,000 UNIT/250ml bag 250 ML IV SCH (13:54)
--- NOTE | 2021-06-16 19:32 | NUR ---
Problems reprioritized. Patient report given, questions answered & plan of care reviewed with Yusuf HINOJOSA.
[2021-06-16] MEDS ORDERED: guaiFENesin ER 600mg tablet PO SCH (20:00)
[2021-06-16] MEDS ORDERED: heparin 25,000 UNIT/250ml bag 250 ML IV SCH (20:35)
[2021-06-16] MEDS ORDERED: heparin 10,000 units/1 ML INJ IV PRN (20:35)
[2021-06-16 22:00] VITALS: BP 172/85
[2021-06-16 22:16] LABS: PARTIAL THROMBOPLASTIN TIME 39 SECONDS (22-32)
[2021-06-16] MEDS: LORazepam 2 mg/ml vial IV PRN (23:26)
--- NOTE | 2021-06-17 00:20 | NUR ---
PTT result 39. heparin 2500units IV administered and heparin IV drip adjusted from 900 to 1000units/Hr and next PTT scheduled for 6:20 on 06/17/21.
[2021-06-17] MEDS ORDERED: heparin 25,000 UNIT/250ml bag 250 ML IV SCH (01:20)
[2021-06-17] MEDS ORDERED: heparin 10,000 units/1 ML INJ IV PRN (01:20)
[2021-06-17] MEDS ORDERED: heparin 10,000 units/1 ML INJ IV ONE (01:20)
[2021-06-17 02:00] VITALS: BP 172/85
--- NOTE | 2021-06-17 06:30 | NUR ---
Patient in room [facility] 4015. I have received report from Yusuf HINOJOSA and had the opportunity to ask questions and assume patient care.
[2021-06-17] MEDS: K and/or MAG REPLACEMENT MC SCH ×2 (08:00→20:00)
[2021-06-17 08:23] LABS: BASOPHILS % (AUTO) 0.2 % (0-1); EOSINOPHILS % (AUTO) 0.1 % (0-6); HEMOGLOBIN 11.7 g/dl (12.0-16.0); LYMPHOCYTES # (AUTO) 0.8 X10'3 (1.1-4.8); LYMPHOCYTES % (AUTO) 4.5 % (21-51); MEAN CORPUSCULAR HEMOGLOBIN 28.9 PG (27.0-31.0); MEAN CORPUSCULAR HGB CONC 33.5 g/dL (33.0-36.5); MEAN CORPUSCULAR VOLUME 86.4 FL (78-98); MEAN PLATELET VOLUME 10.6 FL (7.4-10.4); MONOCYTES # (AUTO) 0.8 X10'3 (0-0.9); MONOCYTES % (AUTO) 4.8 % (2-12); NEUTROPHILS # (AUTO) 15.3 X10'3 (1.8-7.7); NEUTROPHILS % (AUTO) 90.4 % (42-75); PLATELET COUNT 132 X10'3 (140-440); RED BLOOD COUNT 4.05 X10'6 (4.20-5.60); RED CELL DISTRIBUTION WIDTH 14.2 % (11.5-14.5); WHITE BLOOD COUNT 16.9 X10'3 (4.5-11.0)
[2021-06-17 08:56] LABS: ALANINE AMINOTRANSFERASE 41 U/L (12-78); ALBUMIN 1.5 G/DL (3.4-5.0); ALBUMIN/GLOBULIN RATIO 0.3 (1.1-1.5); ALKALINE PHOSPHATASE 107 IU/L (46-116); ANION GAP 10 (8-16); ASPARTATE AMINO TRANSFERASE 23 U/L (10-37); BILIRUBIN,TOTAL 0.4 MG/DL (0.1-1.0); BLOOD UREA NITROGEN 16 MG/DL (7-18); BUN/CREATININE RATIO 24.6 (6.6-38.0); C-REACTIVE PROTEIN 13.99 MG/DL (0.0-0.5); CALCIUM 7.9 MG/DL (8.5-10.1); CHLORIDE 101 MMOL/L (99-107); CREATININE 0.65 MG/DL (0.40-0.90); GLUCOSE 185 MG/DL (70-104); LACTATE DEHYDROGENASE 364 U/L (81-234); MAGNESIUM 2.1 MG/DL (1.5-2.4); POTASSIUM 4.4 MMOL/L (3.5-5.1); SODIUM 135 MMOL/L (135-145); TOTAL CARBON DIOXIDE 24.3 MMOL/L (24-32); TOTAL PROTEIN 6.1 G/DL (6.4-8.2); eGFR 89 ML/MIN
[2021-06-17] MEDS: CefTRIAXone/D5W-Rocephin 1gm 50 ML IV SCH (09:04)
[2021-06-17] MEDS: guaiFENesin ER 600mg tablet PO SCH ×2 (09:04→21:22)
[2021-06-17] MEDS: docusate sod 100mg capsule PO SCH ×2 (09:05→21:21)
[2021-06-17] MEDS: lactobacillus rhamnosus 10,000 MMU CELLS/CAPSULE PO SCH ×2 (09:05→21:22)
[2021-06-17] MEDS: dexamethasone 4mg/ml inj IV SCH ×2 (09:05→21:22)
[2021-06-17 09:06] LABS: PHOSPHORUS 3.6 MG/DL (2.3-4.5)
[2021-06-17] MEDS: nystatin 15 GM powder TP SCH ×3 (09:06→21:37)
[2021-06-17] MEDS: dextrose 5%-water 1,000 ML IV SCH (09:12)
[2021-06-17] MEDS ORDERED: amLODIPine 5mg tablet PO ONE (09:20)
[2021-06-17] MEDS ORDERED: cloNIDine 0.1 mg tablet PO PRN (09:25)
[2021-06-17 10:00] VITALS: BP 137/64
[2021-06-17 12:27] LABS: LARGE PLATELETS FEW; PLATELET ESTIMATE DECREASED
[2021-06-17 14:00] VITALS: BP 134/69
--- NOTE | 2021-06-17 14:21 | NUR ---
F/u 06/17: Pt made NPO per SATELLITE INSTALLER recs 06/14 however NPO diet never ordered w/ meals held in EMR. Pt advanced to pureed/thin today per SATELLITE INSTALLER though refused breakfast; 8 days no nutrition this admit. Per MD note pending son decision tomorrow regarding comfort care. IF pt remains DNR and within plan of care would benefit from NG feeds to meet nutrition needs. Given 8 days no nutrition mild weakness pt meets minimum non-severe malnutrition criteria; notified. Rec: 1. IF pt to remain DNR and within plan of care; EN to meet nutrition needs given 8 days no nutrition 2. routine bowel care 3. scaled wt this admit; subsequent weekly wts 4. monitor for changes in code status Addendum: 06/17/21 at [address] Amended: Links added.
[2021-06-17] MEDS: apixaban 5mg tablet PO SCH (21:22)
[2021-06-17] MEDS: LORazepam 2 mg/ml vial IV PRN (22:19)
[2021-06-18 05:47] LABS: BASOPHILS % (AUTO) 0.2 % (0-1); EOSINOPHILS % (AUTO) 0.2 % (0-6); HEMATOCRIT 34.7 % (35.0-45.0); HEMOGLOBIN 11.6 g/dl (12.0-16.0); LYMPHOCYTES # (AUTO) 0.5 X10'3 (1.1-4.8); LYMPHOCYTES % (AUTO) 3.2 % (21-51); MEAN CORPUSCULAR HGB CONC 33.4 g/dL (33.0-36.5); MEAN CORPUSCULAR VOLUME 86.9 FL (78-98); MONOCYTES # (AUTO) 0.6 X10'3 (0-0.9); MONOCYTES % (AUTO) 3.6 % (2-12); NEUTROPHILS # (AUTO) 15.4 X10'3 (1.8-7.7); NEUTROPHILS % (AUTO) 92.8 % (42-75); PLATELET COUNT 149 X10'3 (140-440); RED BLOOD COUNT 3.99 X10'6 (4.20-5.60); RED CELL DISTRIBUTION WIDTH 14.2 % (11.5-14.5); WHITE BLOOD COUNT 16.6 X10'3 (4.5-11.0)
[2021-06-18 05:52] LABS: D-DIMER 2.77 MG/L FEU (0-0.50)
[2021-06-18 05:54] LABS: ALANINE AMINOTRANSFERASE 39 U/L (12-78); ALBUMIN 1.5 G/DL (3.4-5.0); ALBUMIN/GLOBULIN RATIO 0.3 (1.1-1.5); ALKALINE PHOSPHATASE 84 IU/L (46-116); ANION GAP 8 (8-16); ASPARTATE AMINO TRANSFERASE 20 U/L (10-37); BILIRUBIN,TOTAL 0.4 MG/DL (0.1-1.0); BLOOD UREA NITROGEN 15 MG/DL (7-18); BUN/CREATININE RATIO 20.3 (6.6-38.0); CALCIUM 8.1 MG/DL (8.5-10.1); CHLORIDE 101 MMOL/L (99-107); CREATININE 0.74 MG/DL (0.40-0.90); GLUCOSE 217 MG/DL (70-104); LACTATE DEHYDROGENASE 254 U/L (81-234); PHOSPHORUS 3.5 MG/DL (2.3-4.5); POTASSIUM 4.4 MMOL/L (3.5-5.1); SODIUM 134 MMOL/L (135-145); TOTAL CARBON DIOXIDE 25.3 MMOL/L (24-32); TOTAL PROTEIN 6.4 G/DL (6.4-8.2); eGFR 77 ML/MIN
[2021-06-18 06:10] VITALS: BP 112/86
--- NOTE | 2021-06-18 06:30 | NUR ---
Patient in room [facility] 4015. I have received report from Yusuf HINOJOSA and had the opportunity to ask questions and assume patient care.
[2021-06-18] MEDS: lactobacillus rhamnosus 10,000 MMU CELLS/CAPSULE PO SCH ×2 (07:52→20:31)
[2021-06-18] MEDS: apixaban 5mg tablet PO SCH ×2 (07:52→20:31)
[2021-06-18] MEDS: dexamethasone 4mg/ml inj IV SCH ×2 (07:52→20:31)
[2021-06-18] MEDS: CefTRIAXone/D5W-Rocephin 1gm 50 ML IV SCH (07:52)
[2021-06-18] MEDS: guaiFENesin ER 600mg tablet PO SCH ×2 (07:52→20:31)
[2021-06-18] MEDS: docusate sod 100mg capsule PO SCH ×2 (07:52→20:31)
[2021-06-18] MEDS: amLODIPine 5mg tablet PO SCH (07:54)
[2021-06-18] MEDS: nystatin 15 GM powder TP SCH ×3 (07:55→20:38)
[2021-06-18] MEDS: K and/or MAG REPLACEMENT MC SCH ×2 (08:00→20:00)
[2021-06-18 10:00] VITALS: BP 151/73
[2021-06-18] MEDS: dextrose 5%-water 1,000 ML IV SCH (11:06)
[2021-06-18] MEDS: nystatin 500,000 unit/5ML UD oral suspension PO SCH ×2 (13:00→20:31)
[2021-06-18] MEDS ORDERED: nystatin 500,000 unit/5ML UD oral suspension PO SCH (13:00)
[2021-06-18 14:00] VITALS: BP 136/80
--- NOTE | 2021-06-18 16:08 | NUR ---
F/u 06/18: SHERI urbina MD and d/w RN regarding pt day 10 no nutrition this admit not meeting needs. Noted pt remains DNR in EMR and would benefit from corpak placement w/ tube feeds to meet needs IF within plan of care. Addendum: 06/18/21 at [address] Amended: Links added.
--- NOTE | 2021-06-18 16:11 | NUR ---
I spoke with Son Florentin about possible tube feeding. He said he was okay with it as long as it wasn't to invasive. Dr Rojas ordered corpak for this but patient did not tolerate insertion. I paged Dr. Rojas, let him know.
--- NOTE | 2021-06-18 16:35 | NUR ---
TF Consult: Pt pending corpak placement w/ TF to start if able to place. TF recs below given pt needs; will leave current pureed/thin diet active since approved by [employer]ER recs and NG placement yet to be assured. IF NG successfully placed would benefit from EN for sole nutrition. Noted serum Na 134 this AM receiving D5/water at 50ml/hr; IF TF initiated would benefit from stopping D5 to optimize nutrition intake/hydration via EN. Rec: 1. Continuous TF per MD using Jevity 1.2 at 45ml/hr goal; to provide 1080ml volume/day, 1296 kcals, 875ml water, and 60g protein. 2. additional water flush per MD; serum Na 134 on D5/water; monitor serum Na and additional free water needs 3. stop D5/water once EN initiated and tolerating if MD agreeable 4. PALB Q /; daily wts 5. routine bowel care 6. monitor for TF tolerance; more likely to refeed given poor PO hx day 10 7. continue pureed/thin liquids diet per KENO DEALER/MD recs until NG placement for EN assured; then EN for sole nutrition Addendum: 06/18/21 at [address] Amended: Links added.
--- NOTE | 2021-06-18 17:03 | NUR ---
TPN Consult "TPN vs PPN": RN TC pt did not tolerate corpak placement given mentation and possibly to start PPN tomorrow per MD. RD d/w RN regarding PEG for nutrition needs given functioning gut if to remain DNR. RN reports will review w/ son regarding PEG/TPN as pt does not have central access only PIV and previously did not want any invasive procedures done. PPN recs below in case to start per MD. Will continue pureed/thin diet per COMMISSION AUDITOR recs and monitor for nutrition support needs. Rec: 1. continue pureed/thin diet per COMMISSION AUDITOR/MD recs 2. IF corpak for TF per MD; Jevity 1.2 at 45ml/hr goal; to provide 1080ml volume/day, 1296 kcals, 875ml water, and 60g protein. 3. IF TF; additional water flush per MD; serum Na 134 on D5/water; monitor serum Na and additional free water needs 4. IF TF; PALB Q /; daily wts 5. routine bowel care 6. IF PPN per MD; continuous PPN using 2:1 Clinimix E 4.25/10 at 68ml/hr goal w/ separate 250ml 20% intralipids to run at 20.83ml/hr for 12 hours each day. In total; to provide 1632ml volume/day, 69g AA, 163g DEX (2.06mg/kg/min), and 1330 total kcals. 7. IF PN or EN; monitor for signs of refeeding given 10 days poor PO hx Addendum: 06/18/21 at [address] Amended: Links added.
[2021-06-18 18:00] VITALS: BP 147/66
--- NOTE | 2021-06-18 18:19 | NUR ---
Problems reprioritized. Patient report given, questions answered & plan of care reviewed with Sandy HINOJOSA.
--- NOTE | 2021-06-18 18:20 | NUR ---
Patient in room [facility] 4015B. I have received report from ASHISH Cardoza and had the opportunity to ask questions and assume patient care.
[2021-06-18 22:00] VITALS: BP 156/70
[2021-06-19 02:00] VITALS: BP 137/71
--- NOTE | 2021-06-19 02:05 | NUR ---
Patient pulled out IV. 3 RNs attempted to put one back in with no success.
[2021-06-19 06:10] VITALS: BP 140/74
--- NOTE | 2021-06-19 06:18 | NUR ---
Problems reprioritized. Patient report given, questions answered & plan of care reviewed with ASHISH Larry.
--- NOTE | 2021-06-19 07:01 | NUR ---
Patient in room [facility] 4015. I have received report from Sandy HINOJOSA and had the opportunity to ask questions and assume patient care.
[2021-06-19 07:02] VITALS: BP 140/74
[2021-06-19 07:54] LABS: BASOPHILS % (AUTO) 0.2 % (0-1); EOSINOPHILS % (AUTO) 0.1 % (0-6); HEMATOCRIT 35.9 % (35.0-45.0); HEMOGLOBIN 12.1 g/dl (12.0-16.0); LYMPHOCYTES # (AUTO) 0.7 X10'3 (1.1-4.8); MEAN CORPUSCULAR HEMOGLOBIN 28.6 PG (27.0-31.0); MEAN CORPUSCULAR HGB CONC 33.6 g/dL (33.0-36.5); MEAN CORPUSCULAR VOLUME 85.2 FL (78-98); MEAN PLATELET VOLUME 9.3 FL (7.4-10.4); MONOCYTES % (AUTO) 5.8 % (2-12); NEUTROPHILS # (AUTO) 15.4 X10'3 (1.8-7.7); NEUTROPHILS % (AUTO) 89.9 % (42-75); PLATELET COUNT 202 X10'3 (140-440); RED BLOOD COUNT 4.22 X10'6 (4.20-5.60); WHITE BLOOD COUNT 17.1 X10'3 (4.5-11.0)
[2021-06-19] MEDS: K and/or MAG REPLACEMENT MC SCH ×2 (08:00→20:00)
[2021-06-19] MEDS: CefTRIAXone/D5W-Rocephin 1gm 50 ML IV SCH ×2 (08:00→08:31)
[2021-06-19] MEDS: docusate sod 100mg capsule PO SCH ×2 (08:00→20:57)
[2021-06-19] MEDS: nystatin 15 GM powder TP SCH (08:31)
[2021-06-19] MEDS: dexamethasone 4mg/ml inj IV SCH ×3 (08:31→20:57)
[2021-06-19] MEDS: guaiFENesin ER 600mg tablet PO SCH ×2 (08:31→20:58)
[2021-06-19] MEDS: nystatin 500,000 unit/5ML UD oral suspension PO SCH ×3 (08:31→20:58)
[2021-06-19] MEDS: lactobacillus rhamnosus 10,000 MMU CELLS/CAPSULE PO SCH ×2 (08:31→20:57)
[2021-06-19] MEDS: amLODIPine 5mg tablet PO SCH (08:31)
[2021-06-19] MEDS: apixaban 5mg tablet PO SCH ×2 (08:31→20:57)
[2021-06-19 08:43] LABS: ALANINE AMINOTRANSFERASE 48 U/L (12-78); ALBUMIN 1.7 G/DL (3.4-5.0); ALBUMIN/GLOBULIN RATIO 0.3 (1.1-1.5); ALKALINE PHOSPHATASE 98 IU/L (46-116); ANION GAP 6 (8-16); ASPARTATE AMINO TRANSFERASE 25 U/L (10-37); BILIRUBIN,TOTAL 0.5 MG/DL (0.1-1.0); BLOOD UREA NITROGEN 18 MG/DL (7-18); BUN/CREATININE RATIO 23.7 (6.6-38.0); C-REACTIVE PROTEIN 8.85 MG/DL (0.0-0.5); CALCIUM 8.6 MG/DL (8.5-10.1); CHLORIDE 102 MMOL/L (99-107); CREATININE 0.76 MG/DL (0.40-0.90); GLUCOSE 152 MG/DL (70-104); LACTATE DEHYDROGENASE 355 U/L (81-234); PHOSPHORUS 3.8 MG/DL (2.3-4.5); POTASSIUM 4.5 MMOL/L (3.5-5.1); SODIUM 134 MMOL/L (135-145); TOTAL CARBON DIOXIDE 25.8 MMOL/L (24-32); TOTAL PROTEIN 6.8 G/DL (6.4-8.2); eGFR 74 ML/MIN
[2021-06-19 08:52] LABS: D-DIMER 2.87 MG/L FEU (0-0.50)
[2021-06-19 10:48] VITALS: BP 147/74
--- NOTE | 2021-06-19 10:54 | NUR ---
PAGER ID: [phone] MESSAGE: [id number] patient was on a heparin drip and got switched to elequis 5mg last night and has some hematuria just fyi. Kendy [phone]
[2021-06-19] MEDS ORDERED: magnesium 2GM in 50ml NS 50 ML IV PRN (11:15)
[2021-06-19] MEDS ORDERED: magnesium 4gm in 100ml NS 100 ML IV PRN (11:15)
[2021-06-19] MEDS ORDERED: magnesium Cl slow-release 64mg tablet PO PRN (11:15)
--- NOTE | 2021-06-19 11:23 | NUR ---
F/u 06/19: Pt pulled out IV last night however new peripheral line placed today w/ PPN to start per MD. Recs below given pt needs; high risk for refeeding given poor nutrition 10 days prior. Per RN; likely to receive PICC line tomorrow for TPN. TPN recs below as well in case to start. Will continue to monitor for PN tolerance and adjustment needs. Rec: 1. continue pureed/thin diet per CONSTRUCTION IRONWORKER/MD recs; encourage PO acceptance not eating 10 days currently 2. Continuous PPN per MD using 2:1 Clinimix E 4.25/10 at 68ml/hr goal w/ separate 250ml 20% intralipids to run at 20.83ml/hr for 12 hours each day. In total; to provide 1632ml volume/day, 69g AA, 163g DEX (2.06mg/kg/min), and 1330 total kcals. Initiate at 30ml/hr and if tolerated advance Q12 hours to goal. 3. TG/PALB Q /; daily scaled wts; pending scaled wt this admit 4. monitor for signs of refeeding given 10 days poor PO hx 5. IF TPN via central access; Continuous TPN using 2:1 Clinimix E 5/20 at 54ml/hr goal w/ separate 100ml 20% intralipids to run for 12 hours daily at 8.33ml/hr. To provide 1296ml volume, 65g AA, 259g DEX(3.27mg/kg/min), and 1341 total kcals. Initiate at 30ml/hr and if tolerated advance Q12 hours to goal. 6. IF corpak for TF per MD; Jevity 1.2 at 45ml/hr goal; to provide 1080ml volume/day, 1296 kcals, 875ml water, and 60g protein. 7. hold D5/water w/ PN start if MD agreeable 8. routine bowel care Addendum: 06/19/21 at [address] Amended: Links added.
[2021-06-19] MEDS: dextrose 5%-water 1,000 ML IV SCH (11:48)
[2021-06-19 11:50] LABS: PREALBUMIN 14.4 MG/DL (19-36); TRIGLYCERIDES 100 MG/DL (20-135)
--- NOTE | 2021-06-19 13:13 | NUR ---
Hospitalist aware of hematuria. No new changes in orders at this time.
[2021-06-19] MEDS ORDERED: ZINC/COPPER/MANGANESE/SELENIUM 0.5 ML, chromic chloride inj. 5 MCG in AA 4.25%/CALCIUM/... IV SCH ×2 (14:00→20:00)
[2021-06-19 18:00] VITALS: BP 148/70
--- NOTE | 2021-06-19 18:45 | NUR ---
Problems reprioritized. Patient report given, questions answered & plan of care reviewed with Emperatriz HINOJOSA.
--- NOTE | 2021-06-19 18:46 | NUR ---
Patient in room [facility]TH[facility] 4015. I have received report from Kendy HINOJOSA and had the opportunity to ask questions and assume patient care.
[2021-06-19] MEDS ORDERED: CHROMIC CHLORIDE IV SCH (20:00)
[2021-06-19] MEDS ORDERED: COPPER IV SCH (20:00)
[2021-06-19] MEDS ORDERED: SELENIUM IV SCH (20:00)
[2021-06-19] MEDS ORDERED: [UNRECOGNIZED DRUG - OTHER] IV SCH (20:00)
[2021-06-19] MEDS ORDERED: fat emulsion IV bag 250 ML IV SCH (20:00)
[2021-06-19] MEDS ORDERED: Dextrose 10%-water IV solution 1,000 ML IV PRN (20:00)
[2021-06-19] MEDS ORDERED: ZINC IV SCH (20:00)
[2021-06-19] MEDS ORDERED: ZINC/COPPER/MANGANESE/SELENIUM 1 ML, chromic chloride inj. 10 MCG in AA 4.25%/CALCIUM/L... IV SCH (20:00)
[2021-06-19] MEDS ORDERED: MANGANESE IV SCH (20:00)
[2021-06-19] MEDS: NYSTATIN CREAM - 30GM TUBE TP SCH (20:58)
--- NOTE | 2021-06-19 21:00 | NUR ---
Started pts PPN and lipids per MD orders. Will do Q6hr blood sugar checks per protocol.
--- NOTE | 2021-06-19 21:20 | NUR ---
Started pts 24hr urine at 0. Pt has a Feliciano, which I placed on ice. I will continue to monitor pts output and place in designated jug on ice throughout my shift.
[2021-06-19 22:00] VITALS: BP 141/78
[2021-06-20 02:00] VITALS: BP 128/71
--- NOTE | 2021-06-20 03:04 | NUR ---
Pts blood sugar is 258. Called hospitalist about high blood sugar. Pt is on PPN. MD gave orders to start on hypo/hyperglycemic protocol with NO Lantus.
[2021-06-20] MEDS ORDERED: dextrose ORAL solution 15 GM/59 ML bottle PO PRN ×4 (03:10→09:35)
[2021-06-20] MEDS ORDERED: dextrose 50%-water 50ml dispensing syringe IV PRN ×4 (03:10→09:35)
[2021-06-20] MEDS ORDERED: insulin Lispro (HumaLOG) vial - multi-dose SQ SCH ×3 (03:10→16:50)
[2021-06-20] MEDS ORDERED: glucagon, human recombinant 1mg kit SUBCUT PRN ×2 (03:10→09:35)
[2021-06-20] MEDS ORDERED: MESSAGE TO PHARMACY PO ONE ×2 (03:10→09:35)
[2021-06-20] MEDS ORDERED: insulin regular, human U-100 3ml vial - multi-dose SQ SCH ×2 (03:15→17:25)
--- NOTE | 2021-06-20 04:30 | NUR ---
Called hospitalist about dose of Humalog, unclear in protocol due to pt being on PPN. gave orders for a one time dose of 6 units of Humalog now.
[2021-06-20] MEDS ORDERED: insulin Lispro (HumaLOG) vial - multi-dose SQ ONE (04:35)
--- NOTE | 2021-06-20 06:06 | NUR ---
Problems reprioritized. Patient report given, questions answered & plan of care reviewed with Kendy HINOJOSA.
[2021-06-20 06:32] VITALS: BP 152/79
--- NOTE | 2021-06-20 06:32 | NUR ---
Patient in room [facility] 4015. I have received report from Emperatriz HINOJOSA and had the opportunity to ask questions and assume patient care.
[2021-06-20] MEDS: dextrose 5%-water 1,000 ML IV SCH ×2 (07:28→23:11)
[2021-06-20] MEDS: amLODIPine 5mg tablet PO SCH (07:33)
[2021-06-20] MEDS: lactobacillus rhamnosus 10,000 MMU CELLS/CAPSULE PO SCH ×2 (07:33→21:01)
[2021-06-20] MEDS: nystatin 500,000 unit/5ML UD oral suspension PO SCH ×3 (07:33→21:01)
[2021-06-20] MEDS: dexamethasone 4mg/ml inj IV SCH ×2 (07:33→23:11)
[2021-06-20] MEDS: guaiFENesin ER 600mg tablet PO SCH ×2 (07:33→21:01)
[2021-06-20] MEDS: CefTRIAXone/D5W-Rocephin 1gm 50 ML IV SCH (07:33)
[2021-06-20] MEDS: apixaban 5mg tablet PO SCH ×2 (07:33→21:01)
[2021-06-20] MEDS: docusate sod 100mg capsule PO SCH (07:34)
[2021-06-20 07:45] LABS: BASOPHILS % (AUTO) 0.2 % (0-1); EOSINOPHILS % (AUTO) 0.1 % (0-6); HEMOGLOBIN 11.8 g/dl (12.0-16.0); LYMPHOCYTES # (AUTO) 0.3 X10'3 (1.1-4.8); LYMPHOCYTES % (AUTO) 1.6 % (21-51); MEAN CORPUSCULAR HEMOGLOBIN 29.1 PG (27.0-31.0); MEAN CORPUSCULAR HGB CONC 33.8 g/dL (33.0-36.5); MEAN PLATELET VOLUME 9.9 FL (7.4-10.4); MONOCYTES # (AUTO) 0.8 X10'3 (0-0.9); MONOCYTES % (AUTO) 4.2 % (2-12); NEUTROPHILS % (AUTO) 93.9 % (42-75); PLATELET COUNT 189 X10'3 (140-440); RED BLOOD COUNT 4.08 X10'6 (4.20-5.60); RED CELL DISTRIBUTION WIDTH 14.2 % (11.5-14.5); WHITE BLOOD COUNT 19.2 X10'3 (4.5-11.0)
[2021-06-20] MEDS ORDERED: MVI, adult No.4 with vit. K 10 ML in dextrose 5% water 500ml 500 ML IV SCH ×2 (08:00)
[2021-06-20] MEDS: NYSTATIN CREAM - 30GM TUBE TP SCH ×2 (08:00→20:00)
[2021-06-20] MEDS: K and/or MAG REPLACEMENT MC SCH ×2 (08:00→20:00)
[2021-06-20 08:03] LABS: ALANINE AMINOTRANSFERASE 45 U/L (12-78); ALBUMIN 1.7 G/DL (3.4-5.0); ALBUMIN/GLOBULIN RATIO 0.3 (1.1-1.5); ALKALINE PHOSPHATASE 99 IU/L (46-116); ANION GAP 8 (8-16); ASPARTATE AMINO TRANSFERASE 17 U/L (10-37); BILIRUBIN,TOTAL 0.5 MG/DL (0.1-1.0); BLOOD UREA NITROGEN 23 MG/DL (7-18); BUN/CREATININE RATIO 32.4 (6.6-38.0); C-REACTIVE PROTEIN 11.28 MG/DL (0.0-0.5); CALCIUM 8.4 MG/DL (8.5-10.1); CHLORIDE 103 MMOL/L (99-107); CREATININE 0.71 MG/DL (0.40-0.90); GLUCOSE 194 MG/DL (70-104); LACTATE DEHYDROGENASE 219 U/L (81-234); MAGNESIUM 2.1 MG/DL (1.5-2.4); PHOSPHORUS 3.1 MG/DL (2.3-4.5); POTASSIUM 4.5 MMOL/L (3.5-5.1); PREALBUMIN 14.2 MG/DL (19-36); SODIUM 134 MMOL/L (135-145); TOTAL CARBON DIOXIDE 23.5 MMOL/L (24-32); TOTAL PROTEIN 6.6 G/DL (6.4-8.2); TRIGLYCERIDES 123 MG/DL (20-135); eGFR 80 ML/MIN
--- NOTE | 2021-06-20 08:09 | NUR ---
PAGER ID: [phone] MESSAGE: [id number], Margaret. Dr. Israel wanted picc for TPN. Patient has a peripheral IV and is getting PPN, more alert and tolerating PO intake. Do you still want a picc and tpn or just PPN? also I need the hyperglycemia protocol ritesh [id number]
[2021-06-20 09:29] LABS: D-DIMER 2.37 MG/L FEU (0-0.50)
--- NOTE | 2021-06-20 09:52 | NUR ---
PAGER ID: [phone] MESSAGE: [id number], Margaret PICC nurse called and is wanting to know if we still need a picc for tpn. ritesh [phone]
[2021-06-20 10:10] VITALS: BP 143/65
[2021-06-20] MEDS: insulin regular, human U-100 3ml vial - multi-dose SQ SCH ×2 (10:24→14:15)
--- NOTE | 2021-06-20 10:27 | NUR ---
PPN increased to goal
[2021-06-20 13:43] VITALS: BP 130/82
[2021-06-20 17:06] VITALS: BP 137/69
--- NOTE | 2021-06-20 18:22 | NUR ---
Problems reprioritized. Patient report given, questions answered & plan of care reviewed with Emperatriz HINOJOSA.
--- NOTE | 2021-06-20 18:28 | NUR ---
Patient in room [facility]TH[facility] 4015. I have received report from Kendy HINOJOSA and had the opportunity to ask questions and assume patient care.
[2021-06-20] MEDS ORDERED: HYDROcodone/acetaminophen 5mg/325mg tablet PO PRN (18:40)
[2021-06-20] MEDS ORDERED: LORazepam 2 mg/ml vial IV PRN (18:40)
[2021-06-20] MEDS ORDERED: ZINC/COPPER/MANGANESE/SELENIUM 0.5 ML, chromic chloride inj. 5 MCG in AA 4.25%/CALCIUM/... IV SCH (19:00)
--- NOTE | 2021-06-20 20:50 | NUR ---
Went in to check on pt and check pts blood sugar, as well as stop PPN per MD orders. Pt resting in bed with tele monitor and IV sitting on her bedside table. Pt had taken out her IV. PPN was then stopped. BS WDL at 128. Reoriented pt and got her settled and comfortable in bed. Attempted to start a new IV without success. Collaborated to have another RN try to initiate an IV.
[2021-06-20] MEDS: insulin glargine (Lantus) pen - multi-dose SQ SCH (21:00)
[2021-06-20 22:00] VITALS: BP 112/58
[2021-06-21 02:50] VITALS: BP 126/64
--- NOTE | 2021-06-21 06:14 | NUR ---
Problems reprioritized. Patient report given, questions answered & plan of care reviewed with Nena HINOJOSA.
[2021-06-21 06:30] VITALS: BP 125/70
[2021-06-21] MEDS: guaiFENesin ER 600mg tablet PO SCH ×2 (07:24→21:08)
[2021-06-21] MEDS: apixaban 5mg tablet PO SCH ×2 (07:24→21:08)
[2021-06-21] MEDS: CefTRIAXone/D5W-Rocephin 1gm 50 ML IV SCH (07:24)
[2021-06-21] MEDS: amLODIPine 5mg tablet PO SCH (07:24)
[2021-06-21] MEDS: lactobacillus rhamnosus 10,000 MMU CELLS/CAPSULE PO SCH ×2 (07:25→20:00)
[2021-06-21] MEDS: dexamethasone 4mg/ml inj IV SCH ×2 (07:25→21:09)
[2021-06-21] MEDS: nystatin 500,000 unit/5ML UD oral suspension PO SCH ×3 (07:25→21:08)
[2021-06-21] MEDS: NYSTATIN CREAM - 30GM TUBE TP SCH ×2 (07:55→20:00)
[2021-06-21] MEDS: K and/or MAG REPLACEMENT MC SCH ×2 (08:00→20:00)
[2021-06-21 11:00] VITALS: BP 189/60
[2021-06-21 12:20] LABS: BASOPHILS % (AUTO) 0.1 % (0-1); EOSINOPHILS % (AUTO) 0 % (0-6); HEMATOCRIT 37.9 % (35.0-45.0); HEMOGLOBIN 12.5 g/dl (12.0-16.0); LYMPHOCYTES # (AUTO) 0.6 X10'3 (1.1-4.8); LYMPHOCYTES % (AUTO) 2.9 % (21-51); MEAN CORPUSCULAR HEMOGLOBIN 29.2 PG (27.0-31.0); MEAN CORPUSCULAR HGB CONC 33.1 g/dL (33.0-36.5); MEAN CORPUSCULAR VOLUME 88.2 FL (78-98); MEAN PLATELET VOLUME 9.4 FL (7.4-10.4); MONOCYTES # (AUTO) 0.6 X10'3 (0-0.9); MONOCYTES % (AUTO) 2.8 % (2-12); NEUTROPHILS # (AUTO) 19.9 X10'3 (1.8-7.7); NEUTROPHILS % (AUTO) 94.2 % (42-75); PLATELET COUNT 182 X10'3 (140-440); RED CELL DISTRIBUTION WIDTH 14.2 % (11.5-14.5); WHITE BLOOD COUNT 21.1 X10'3 (4.5-11.0)
[2021-06-21 12:31] LABS: D-DIMER 2.39 MG/L FEU (0-0.50)
[2021-06-21 12:33] LABS: ALBUMIN 1.8 G/DL (3.4-5.0); ANION GAP 13 (8-16); BLOOD UREA NITROGEN 26 MG/DL (7-18); BUN/CREATININE RATIO 37.1 (6.6-38.0); CALCIUM 8.5 MG/DL (8.5-10.1); CHLORIDE 98 MMOL/L (99-107); GLUCOSE 235 MG/DL (70-104); POTASSIUM 4.7 MMOL/L (3.5-5.1); SODIUM 131 MMOL/L (135-145); TOTAL CARBON DIOXIDE 20.3 MMOL/L (24-32); eGFR 82 ML/MIN
[2021-06-21 15:00] VITALS: BP 120/50
--- NOTE | 2021-06-21 15:14 | NUR ---
SPOKE WITH DR VILLAREAL RE ELEVATED BLOOD SUGARS. SHE STATES TO KEEP PT ON HYPERGLYCEMIC PROTOCOL AND DC D5W AND START NS.
[2021-06-21] MEDS: insulin Lispro (HumaLOG) vial - multi-dose SQ SCH (15:34)
[2021-06-21] MEDS: normal saline 1000ml 1,000 ML IV SCH (15:37)
--- NOTE | 2021-06-21 17:48 | NUR ---
F/u 06/21: Pt PPN cancelled 10/7 PM and advanced to MM5/honey thick per MD; received PPN for total of one day of nutrition out of 12 days no significant nutrition this admit. Noted pt s/p [employer] BSS this AM recommending MM5/thin liquids however no new diet order in EMR; RD d/w RN MINE PROMOTOR recs for thin liquids. Cannot send thin liquids until new diet order in EMR. Per MD note, pt able to feed self though RN today reports pt not eating much less than 25% even getting full assistance w/ meals. Refused breakfast this AM per EMR. RD d/w RN regarding need for enteral nutrition support only way to optimize nutrition status at this time IF within plan of care given functioning gut only on 6L high flow currently per EMR. Noted only BM documented in EMR 06/12 however RN reports true LBM 06/17. 4 days constipation however also no PO intake likely impacting BM regularity. Serum Na 131 this AM w/ D5 at 50ml/hr changed to NS r/t elevated Glu per MD; only consistent source of kcals since admit even though marginal providing 204 kcals/day. Glu 235mg/dl this afternoon likely impacted more by Lantus not given last night w/ AM Glu yesterday 186mg/dl while receiving decadron instead of 60g DEX/day (0.78mg/kg/min) from prior D5 at 50ml/hr. Will continue to monitor. Rec: 1. advance to regular/MM5/thin diet per MINE PROMOTOR/MD recs; encourage PO; max assistance w/ meals. Poor PO intake 12 days this admit. 2. Consider EN nutrition support given 12 days poor nutrition status IF within plan of care. IF corpak for TF; Jevity 1.2 at 45ml/hr goal; to provide 1080ml volume/day, 1296 kcals, 875ml water, and 60g protein. 3. IF TF; hold additional free water w/ serum Na 131 4. IF TF; PALB Q /; daily wts 5. routine bowel care; 4 days constipation Addendum: 06/21/21 at [address] Amended: Links added.
[2021-06-21 18:00] VITALS: BP 127/69
--- NOTE | 2021-06-21 19:14 | NUR ---
Patient in room [facility]TH[facility] 4015. I have received report from Nena HINOJOSA and had the opportunity to ask questions and assume patient care.
[2021-06-21] MEDS: insulin glargine (Lantus) pen - multi-dose SQ SCH (21:00)
--- NOTE | 2021-06-21 21:00 | NUR ---
Spoke with pts son Florentin earlier, updated him on pts POC. He also informed me that the pt has never been a big eater however, she really likes chocolate. Gave pt chocolate pudding with her meds. this evening, she did really well and ate the whole thing!
[2021-06-21 22:24] VITALS: BP 124/77
[2021-06-22 02:00] VITALS: BP 123/57
--- NOTE | 2021-06-22 06:24 | NUR ---
Problems reprioritized. Patient report given, questions answered & plan of care reviewed with Nena HINOJOSA.
[2021-06-22 06:39] VITALS: BP 180/66
[2021-06-22] MEDS: nystatin 500,000 unit/5ML UD oral suspension PO SCH ×3 (06:59→20:08)
[2021-06-22] MEDS: CefTRIAXone/D5W-Rocephin 1gm 50 ML IV SCH (06:59)
[2021-06-22] MEDS: guaiFENesin ER 600mg tablet PO SCH ×2 (07:00→20:04)
[2021-06-22] MEDS: lactobacillus rhamnosus 10,000 MMU CELLS/CAPSULE PO SCH ×2 (07:00→20:04)
[2021-06-22] MEDS: apixaban 5mg tablet PO SCH ×2 (07:00→20:04)
[2021-06-22] MEDS: amLODIPine 5mg tablet PO SCH (07:00)
[2021-06-22] MEDS: dexamethasone 4mg/ml inj IV SCH ×2 (07:01→20:03)
[2021-06-22] MEDS: NYSTATIN CREAM - 30GM TUBE TP SCH ×2 (07:18→20:00)
[2021-06-22] MEDS: K and/or MAG REPLACEMENT MC SCH ×2 (08:00→20:00)
[2021-06-22] MEDS: insulin Lispro (HumaLOG) vial - multi-dose SQ SCH (10:04)
[2021-06-22 11:00] VITALS: BP 114/54
[2021-06-22] MEDS: normal saline 1000ml 1,000 ML IV SCH (14:08)
[2021-06-22 14:57] VITALS: BP 126/58
[2021-06-22 18:00] VITALS: BP 125/69
--- NOTE | 2021-06-22 18:00 | NUR ---
Patient in room [facility]TH[facility] 4020. I have received report from Nena HINOJOSA and had the opportunity to ask questions and assume patient care. Addendum: 06/22/21 at 1846 by Amarilis Bradley RN Amended: Links added.
--- NOTE | 2021-06-22 18:24 | NUR ---
Problems reprioritized. Patient report given, questions answered & plan of care reviewed with jannette sinha.
[2021-06-22] MEDS: insulin glargine (Lantus) pen - multi-dose SQ SCH (21:00)
[2021-06-22 22:00] VITALS: BP 127/59
--- NOTE | 2021-06-22 22:00 | NUR ---
Returned a phone call back to pt's son's Florentin who had called early to know how the pt. was doing. Reported to son Florentin that pt. did not have any change in condition at this time. Pt's son was greatful for the call back. Addendum: 06/23/21 at 0112 by Amarilis Bradley RN Amended: Links added.
--- NOTE | 2021-06-23 01:39 | NUR ---
Changed pt's linen and reposition pt. No c/o pain or SOB at this time. Addendum: 06/23/21 at 0139 by Amarilis Bradley RN Amended: Links added.
[2021-06-23 02:00] VITALS: BP 116/54
--- NOTE | 2021-06-23 05:20 | NUR ---
Pulled out f/c with no incident. Cleaned pt. and changed linen. Call light within reach. Addendum: 06/23/21 at 0654 by Amarilis Bradley RN Amended: Links added.
[2021-06-23 06:00] VITALS: BP 119/52
--- NOTE | 2021-06-23 06:10 | NUR ---
RECEIVED REPORT FROM ASHISH ARAIZA
--- NOTE | 2021-06-23 06:35 | NUR ---
Problems reprioritized. Patient report given, questions answered & plan of care reviewed with bela sinha. Addendum: 06/23/21 at 0646 by Amarilis Bradley RN Amended: Links added.
[2021-06-23] MEDS: K and/or MAG REPLACEMENT MC SCH ×2 (08:00→20:00)
[2021-06-23] MEDS: CefTRIAXone/D5W-Rocephin 1gm 50 ML IV SCH (08:21)
[2021-06-23] MEDS: dexamethasone 4mg/ml inj IV SCH ×2 (08:22→20:00)
[2021-06-23] MEDS: NYSTATIN CREAM - 30GM TUBE TP SCH ×2 (08:24→20:00)
[2021-06-23] MEDS: lactobacillus rhamnosus 10,000 MMU CELLS/CAPSULE PO SCH ×2 (08:25→20:00)
[2021-06-23] MEDS: apixaban 5mg tablet PO SCH ×2 (08:26→20:00)
[2021-06-23] MEDS: guaiFENesin ER 600mg tablet PO SCH ×2 (08:26→20:00)
[2021-06-23] MEDS: amLODIPine 5mg tablet PO SCH (08:27)
[2021-06-23] MEDS: nystatin 500,000 unit/5ML UD oral suspension PO SCH ×4 (08:27→22:12)
[2021-06-23] MEDS: normal saline 1000ml 1,000 ML IV SCH (08:38)
[2021-06-23 10:00] VITALS: BP 129/63
--- NOTE | 2021-06-23 10:12 | NUR ---
IN SHIFT REPORT, I RECEIVED REPORT ON PT HAVING A BM ON 06/22 BUT THIS BM HAS NOT BEEN DOCUMENTED
[2021-06-23 14:00] VITALS: BP 119/65
[2021-06-23 18:00] VITALS: BP 140/92
--- NOTE | 2021-06-23 18:26 | NUR ---
gave report to ernestine galeano
[2021-06-23] MEDS: insulin glargine (Lantus) pen - multi-dose SQ SCH (21:00)
[2021-06-23 22:00] VITALS: BP 142/69
--- NOTE | 2021-06-23 22:36 | NUR ---
Poor PO intake and refused dinner this evening. Patient doesn't meet the protocol for insulin according to the previous BS. Continue to monitoring.
[2021-06-24] MEDS: normal saline 1000ml 1,000 ML IV SCH (02:43)
[2021-06-24 02:44] VITALS: BP 139/69
[2021-06-24 06:00] VITALS: BP 140/62
--- NOTE | 2021-06-24 06:30 | NUR ---
Patient in room [facility] 4015B. I have received report from ASHISH BARTON and had the opportunity to ask questions and assume patient care.
[2021-06-24] MEDS: K and/or MAG REPLACEMENT MC SCH ×2 (08:00→20:00)
[2021-06-24] MEDS: dexamethasone 4mg/ml inj IV SCH ×2 (08:41→20:00)
[2021-06-24] MEDS: nystatin 500,000 unit/5ML UD oral suspension PO SCH ×3 (08:45→21:00)
[2021-06-24] MEDS: apixaban 5mg tablet PO SCH ×2 (08:46→20:50)
[2021-06-24] MEDS: lactobacillus rhamnosus 10,000 MMU CELLS/CAPSULE PO SCH ×2 (08:47→20:48)
[2021-06-24] MEDS: amLODIPine 5mg tablet PO SCH (08:48)
[2021-06-24] MEDS: guaiFENesin ER 600mg tablet PO SCH ×2 (08:48→20:48)
[2021-06-24] MEDS: NYSTATIN CREAM - 30GM TUBE TP SCH ×2 (08:49→20:00)
[2021-06-24 10:00] VITALS: BP 164/62
[2021-06-24 14:00] VITALS: BP 142/98
--- NOTE | 2021-06-24 14:02 | NUR ---
F/u 06/24: Pt PO fortunately slowly improving on MM5/thin diet ~25% avg meals consistently 06/21 and 06/23 though no PO meal intake documented 06/22. Pt PO 50-75% breakfast this AM w/ minimal assistance; SHERI d/w RN who reports mentation improving and would likely drink ONS if provided. RD recommends Ensure Enlive TIDWM if MD agreeable. LBM 06/22 per RN today. Will continue to monitor for PO hx and additional nutrition intervention needs. Rec: 1. continue regular/MM5/thin diet per REFERENCE LIBRARIAN/MD recs; encourage PO 2. Ensure Enlive TIDWM if MD agreeable for additional protein/kcals 3. routine bowel care 4. scaled wt this admit; subsequent weekly wts Addendum: 06/24/21 at [address] Amended: Links added.
--- NOTE | 2021-06-24 15:36 | NUR ---
Page Sent PAGER ID: [phone] MESSAGE: PAUL [phone]-RE: [id number] ARACELI SANCHEZ...PT WORKED WITH PHYSICAL THERAPY...WALKED 20 FT AND HAD TO SIT, TWICE, O2 DECREASED INTO LOW 80'S BUT RECOVERED QUICKLY
[2021-06-24] MEDS: lactose-reduced food (Ensure Enlive) - 237ml bottle PO SCH (18:07)
--- NOTE | 2021-06-24 18:24 | NUR ---
Problems reprioritized. Patient report given, questions answered & plan of care reviewed with ASHISH SIMPSON.
[2021-06-24] MEDS: insulin glargine (Lantus) pen - multi-dose SQ SCH (21:00)
[2021-06-25 06:00] VITALS: BP 135/81
--- NOTE | 2021-06-25 06:33 | NUR ---
Patient in room [facility]TH[facility] 4015B. I have received report from ASHISH SIMPSON and had the opportunity to ask questions and assume patient care.
--- NOTE | 2021-06-25 06:36 | NUR ---
Problems reprioritized. Patient report given, questions answered & plan of care reviewed with
[2021-06-25] MEDS: normal saline 1000ml 1,000 ML IV SCH ×2 (07:23→21:14)
[2021-06-25] MEDS: lactobacillus rhamnosus 10,000 MMU CELLS/CAPSULE PO SCH ×2 (07:24→21:16)
[2021-06-25] MEDS: dexamethasone 4mg/ml inj IV SCH (07:24)
[2021-06-25] MEDS: guaiFENesin ER 600mg tablet PO SCH ×2 (07:25→21:15)
[2021-06-25] MEDS: amLODIPine 5mg tablet PO SCH (07:26)
[2021-06-25] MEDS: apixaban 5mg tablet PO SCH ×2 (07:27→21:14)
[2021-06-25] MEDS: nystatin 500,000 unit/5ML UD oral suspension PO SCH ×3 (07:28→21:15)
[2021-06-25] MEDS: NYSTATIN CREAM - 30GM TUBE TP SCH ×2 (07:29→21:16)
[2021-06-25] MEDS: lactose-reduced food (Ensure Enlive) - 237ml bottle PO SCH ×3 (08:00→21:13)
[2021-06-25] MEDS: K and/or MAG REPLACEMENT MC SCH ×2 (08:00→20:00)
[2021-06-25 10:00] VITALS: BP 136/60
[2021-06-25 14:00] VITALS: BP 111/58
[2021-06-25 18:00] VITALS: BP 121/62
--- NOTE | 2021-06-25 18:39 | NUR ---
Problems reprioritized. Patient report given, questions answered & plan of care reviewed with ASHISH QUINONES.
--- NOTE | 2021-06-25 20:34 | NUR ---
SPOKE TO DR SALOMON WITH REGARD TO PATIENT IV HE STATES "OKAY TO LEAVE IV OUT."
[2021-06-25] MEDS: insulin glargine (Lantus) pen - multi-dose SQ SCH (21:00)
[2021-06-25] MEDS: DEXAMETHASONE 6 MG TABLET PO SCH (21:14)
[2021-06-25 22:00] VITALS: BP 137/76
[2021-06-26 02:00] VITALS: BP 130/70
[2021-06-26] MEDS: K and/or MAG REPLACEMENT MC SCH (08:00)
[2021-06-26] MEDS: NYSTATIN CREAM - 30GM TUBE TP SCH (08:00)
[2021-06-26] MEDS: DEXAMETHASONE 6 MG TABLET PO SCH (08:20)
[2021-06-26] MEDS: guaiFENesin ER 600mg tablet PO SCH (08:20)
[2021-06-26] MEDS: lactobacillus rhamnosus 10,000 MMU CELLS/CAPSULE PO SCH (08:21)
[2021-06-26] MEDS: amLODIPine 5mg tablet PO SCH (08:21)
[2021-06-26] MEDS: apixaban 5mg tablet PO SCH (08:21)
[2021-06-26] MEDS: lactose-reduced food (Ensure Enlive) - 237ml bottle PO SCH (08:22)
[2021-06-26 10:00] VITALS: BP 128/53
[2021-06-26] MEDS: nystatin 500,000 unit/5ML UD oral suspension PO SCH (10:55)
--- NOTE | 2021-06-26 15:30 | NUR ---
[facility]....Called sonFlorentin and notified of pts dc
== END 2021-06-26 15:25 | DRG 177 ==
LOC: ER 08:44 → ED HOLD 17:31 → ORTHO 4S 21:20
PROVIDERS: ADMIT Family Medicine; ATTEND Family Medicine
PROC: B32T1ZZ Computerized Tomography (CT Scan) of Left Pulmonary Artery using Low Osmolar Contrast (ICD-10-PCS; 2021-06-09)
PROC: B3201ZZ Computerized Tomography (CT Scan) of Thoracic Aorta using Low Osmolar Contrast (ICD-10-PCS; 2021-06-09)
PROC: B32S1ZZ Computerized Tomography (CT Scan) of Right Pulmonary Artery using Low Osmolar Contrast (ICD-10-PCS; 2021-06-09)
PROC: 5A0935A Assistance with Respiratory Ventilation, Less than 24 Consecutive Hours, High Flow/Velocity Cannula (ICD-10-PCS; principal; 2021-06-10)
PROC: 5A0955A Assistance with Respiratory Ventilation, Greater than 96 Consecutive Hours, High Flow/Velocity Cannula (ICD-10-PCS; 2021-06-11)
DX: U07.1 COVID-19 (principal); J12.82 Pneumonia due to coronavirus disease 2019; G93.41 Metabolic encephalopathy; J96.01 Acute respiratory failure with hypoxia; I26.93 Single subsegmental thrombotic pulmonary embolism without acute cor pulmonale; E87.0 Hyperosmolality and hypernatremia; R64 Cachexia; N39.0 Urinary tract infection, site not specified; B37.0 Candidal stomatitis; E11.9 Type 2 diabetes mellitus without complications; Z66 Do not resuscitate; J43.2 Centrilobular emphysema; J43.8 Other emphysema; R59.0 Localized enlarged lymph nodes; R63.0 Anorexia; Z79.01 Long term (current) use of anticoagulants; Z79.899 Other long term (current) drug therapy; Z68.23 Body mass index [BMI] 23.0-23.9, adult; Z78.1 Physical restraint status
CPT/HCPCS: 36415; 36600; 70450; 71045; 71275; 76937; 80048; 80053; 80061; 80305; 80320; 81001; 82140; 82803; 82948; 83036; 83605; 83615; 83735; 84100; 84134; 84145; 84443; 84478; 84484; 85007; 85008; 85018; 85025; 85379; 85610; 85730; 86140; 87040; 87081; 87088; 92508; 92616; 93005; 93308; 94760; 97110; 97112; 97116; 97161; 97530; 99285; G0378; J0456; J0696; J1100; J1630; J1644; J1815; J2060; J2270; J7030; J7060; J7070; J8540; Q9967

== ENCOUNTER 2023-03-11 18:24 | Emergency (ER) | payer BC, OTHER ==
[~2023-03-11] VITALS: Ht 160 cm; Wt 52.7 kg
[~2023-03-11 18:24] MED LIST: ESTR10TA9 VG
[2023-03-11 18:28] VITALS: BP 163/62
[2023-03-11] MEDS ORDERED: DICL100G30 TOP (20:16)
== END 2023-03-11 20:42 | disposition home or self-care (01) ==
LOC: ER 18:24
DX: M25.561 Pain in right knee (principal); M25.562 Pain in left knee; W19.XXXA Unspecified fall, initial encounter; Y93.89 Activity, other specified; Y92.89 Other specified places as the place of occurrence of the external cause; Y99.8 Other external cause status
CPT/HCPCS: 73560; 99284; A6449

== ENCOUNTER 2024-02-08 13:41 | Inpatient (IN) | payer BC, OTHER ==
[~2024-02-08] VITALS: Ht 160 cm; Wt 50.0 kg
[~2024-02-08 13:41] MED LIST changes: +ASPI-1 PO; +ATOR20TA66 PO; +CLOP-32 PO; -ESTR10TA9 VG
[2024-02-08] MEDS: ondansetron/PF 4mg/2ml inj IV ONE (14:38)
[2024-02-08] MEDS: morphine 4 MG/ML inj SYRINge IV ONE (14:38)
[2024-02-08] MEDS ORDERED: magnesium 4gm in 100ml NS 100 ML IV PRN (15:25)
[2024-02-08] MEDS ORDERED: magnesium hydroxide 30ml (MOM) UD suspension PO PRN (15:25)
[2024-02-08] MEDS ORDERED: morphine 2 MG/ML inj. syringe IV PRN (15:25)
[2024-02-08] MEDS ORDERED: potassium Cl 20 mEq SR tablet PO PRN ×2 (15:25)
[2024-02-08] MEDS ORDERED: potassium Cl 40MEQ/1/2NS 520ml 520 ML IV PRN (15:25)
[2024-02-08] MEDS ORDERED: mag hydrox/Alum hydrox/simeth 30ml oral suspension PO PRN (15:25)
[2024-02-08] MEDS ORDERED: magnesium 2GM in 50ml NS 50 ML IV PRN (15:25)
[2024-02-08] MEDS ORDERED: magnesium Cl slow-release 64mg tablet PO PRN (15:25)
[2024-02-08 15:51] LABS: BASOPHILS # (AUTO) 0.1 X10'3 (0-0.2); BASOPHILS % (AUTO) 0.4 % (0-1); EOSINOPHILS # (AUTO) 0.1 X10'3 (0-0.9); EOSINOPHILS % (AUTO) 0.7 % (0-6); HEMOGLOBIN 12.5 g/dl (12.0-16.0); LYMPHOCYTES # (AUTO) 1.2 X10'3 (1.1-4.8); LYMPHOCYTES % (AUTO) 8.4 % (21-51); MEAN CORPUSCULAR HEMOGLOBIN 27.8 PG (27.0-31.0); MEAN CORPUSCULAR HGB CONC 32.8 g/dL (33.0-36.5); MEAN CORPUSCULAR VOLUME 84.7 FL (78-98); MONOCYTES # (AUTO) 0.6 X10'3 (0-0.9); NEUTROPHILS % (AUTO) 86.5 % (42-75); PLATELET COUNT 269 X10'3 (140-440); RED BLOOD COUNT 4.48 X10'6 (4.20-5.60); RED CELL DISTRIBUTION WIDTH 15.6 % (11.5-14.5); WHITE BLOOD COUNT 13.8 X10'3 (4.5-11.0)
[2024-02-08 16:01] LABS: BILIRUBIN,URINE NEGATIVE (Neg); COLOR,URINE YELLOW (Yellow); GLUCOSE, URINE NEGATIVE (Neg); KETONES,URINE NEGATIVE (Neg); LEUKOCYTE ESTERASE ,URINE NEGATIVE (Neg); NITRITES, URINE NEGATIVE (Neg); OCCULT BLOOD,URINE NEGATIVE (Neg); PH,URINE 6.5 (4.8-8.0); PROTEIN,URINE NEGATIVE (Neg); UROBILINOGEN,URINE 0.2 E.U/dL (0.2-1.0)
[2024-02-08 16:06] LABS: APTT 27 SECONDS (22-32)
[2024-02-08 16:16] LABS: ANION GAP 12 (8-16); BLOOD UREA NITROGEN 12 MG/DL (7-18); BUN/CREATININE RATIO 17.4 (10.0-20.0); CALCIUM 9.3 MG/DL (8.5-10.1); CHLORIDE 102 MMOL/L (99-107); CREATININE 0.69 MG/DL (0.40-0.90); GLUCOSE 120 MG/DL (70-104); POTASSIUM 3.7 MMOL/L (3.5-5.1); PRO BRAIN NATRIURETIC PEPTIDE 200 PG/ML (0-450); SODIUM 137 MMOL/L (135-145); TOTAL CARBON DIOXIDE 22.9 MMOL/L (24-32); eCRCL 55 ML/MIN; eGFR 83 ML/MIN
[2024-02-08 16:17] LABS: UA COLLECTION TYPE FOLEY CATH
[2024-02-08 16:18] LABS: CLARITY,URINE SLIGHTLY CLOUDY (Clear)
[2024-02-08 16:19] LABS: BACTERIA,URINE NONE SEEN /HPF (Neg); CAL OXALATE CRYSTALS 2+ /HPF (NEGATIVE); RBC,URINE NONE SEEN /HPF (0-2); SQUAMOUS EPITHELIAL CELL,UR NONE SEEN /LPF (FEW); WBC,URINE NONE SEEN /HPF (0-4)
[2024-02-08] MEDS: HYDROmorphone inj. 0.5 MG/0.5 ML DISP.SYRIN IV PRN (16:31)
[2024-02-08] MEDS: normal saline 1000ml 1,000 ML IV SCH (16:35)
[2024-02-08] MEDS: hydrALAZINE 20mg/ml inj. IV PRN ×2 (17:25→22:01)
[2024-02-08] MEDS ORDERED: ATOR20TA PO (17:35)
[2024-02-08] MEDS ORDERED: LISI5TAB22 PO (17:35)
[2024-02-08] MEDS ORDERED: SOTA80TA73 PO (17:35)
[2024-02-08] MEDS ORDERED: APIX5TAB3 PO (17:35)
[2024-02-08] MEDS ORDERED: ASPI-1265 PO (17:35)
[2024-02-08] MEDS: lisinopril 5mg tablet PO SCH (19:31)
[2024-02-08] MEDS: sotalol HCl 40mg (1/2 tablet) PO SCH (19:31)
[2024-02-08] MEDS: docusate sod 100mg capsule PO SCH (19:31)
[2024-02-08] MEDS: K and/or MAG REPLACEMENT MC SCH (19:33)
[2024-02-08 23:30] VITALS: RESP 16; O2SAT 93
[2024-02-09] VITALS (28 sets, daily range): BP systolic 107–198; BP diastolic 38–112; PULSE 61–92; RESP 10–16; TEMP 97.4–98.6; O2SAT 61–100
[2024-02-09] MEDS: ondansetron/PF 4mg/2ml inj IV PRN (08:36)
[2024-02-09] MEDS ORDERED: HYDROmorphone/PF 0.2 MG/ML SYRINGE IV PRN ×2 (09:00)
[2024-02-09] MEDS ORDERED: proCHLORperazine 10 MG/2 ml inj IV PRN (09:00)
[2024-02-09] MEDS ORDERED: morphine 2 MG/ML inj. syringe IV PRN (09:00)
[2024-02-09] MEDS: ringers solution, lacted 1,000 ML IV SCH (09:00)
[2024-02-09] MEDS ORDERED: morphine 4 MG/ML inj SYRINge IV PRN (09:00)
[2024-02-09] MEDS ORDERED: ondansetron/PF 4mg/2ml inj IV PRN (09:00)
[2024-02-09] MEDS ORDERED: meperidine/PF 25mg/ml syringe IV PRN (09:00)
[2024-02-09 09:11] LABS: BASOPHILS % (AUTO) 0.3 % (0-1); EOSINOPHILS # (AUTO) 0.1 X10'3 (0-0.9); EOSINOPHILS % (AUTO) 0.9 % (0-6); HEMOGLOBIN 12.2 g/dl (12.0-16.0); LYMPHOCYTES # (AUTO) 1.1 X10'3 (1.1-4.8); LYMPHOCYTES % (AUTO) 9.4 % (21-51); MEAN CORPUSCULAR HEMOGLOBIN 27.8 PG (27.0-31.0); MEAN CORPUSCULAR HGB CONC 32.9 g/dL (33.0-36.5); MEAN CORPUSCULAR VOLUME 84.5 FL (78-98); MEAN PLATELET VOLUME 7.9 FL (7.4-10.4); MONOCYTES # (AUTO) 0.9 X10'3 (0-0.9); MONOCYTES % (AUTO) 7.6 % (2-12); NEUTROPHILS # (AUTO) 9.2 X10'3 (1.8-7.7); NEUTROPHILS % (AUTO) 81.8 % (42-75); PLATELET COUNT 244 X10'3 (140-440); RED BLOOD COUNT 4.38 X10'6 (4.20-5.60); RED CELL DISTRIBUTION WIDTH 15.7 % (11.5-14.5); WHITE BLOOD COUNT 11.2 X10'3 (4.5-11.0)
[2024-02-09] MEDS: cloNIDine hcl/PF 100mcg/ml inj ONE (09:29)
[2024-02-09] MEDS ORDERED: sevoflurane 250ml liquid IH ONE (09:36)
[2024-02-09] MEDS ORDERED: fentaNYL/PF 50MCG/1 ML 2ML syringe ONE (09:40)
[2024-02-09 09:43] LABS: ALANINE AMINOTRANSFERASE 15 U/L (12-78); ALBUMIN 3.2 G/DL (3.4-5.0); ALBUMIN/GLOBULIN RATIO 0.8 (1.1-1.5); ALKALINE PHOSPHATASE 59 IU/L (46-116); ANION GAP 8 (8-16); ASPARTATE AMINO TRANSFERASE 22 U/L (10-37); BILIRUBIN,TOTAL 0.9 MG/DL (0.1-1.0); BLOOD UREA NITROGEN 11 MG/DL (7-18); BUN/CREATININE RATIO 19.6 (10.0-20.0); CALCIUM 8.7 MG/DL (8.5-10.1); CHLORIDE 103 MMOL/L (99-107); CREATININE 0.56 MG/DL (0.40-0.90); GLUCOSE 123 MG/DL (70-104); MAGNESIUM 1.9 MG/DL (1.5-2.4); POTASSIUM 3.8 MMOL/L (3.5-5.1); SODIUM 133 MMOL/L (135-145); TOTAL CARBON DIOXIDE 21.8 MMOL/L (24-32); TOTAL PROTEIN 7.1 G/DL (6.4-8.2); eCRCL 67 ML/MIN; eGFR > 90 ML/MIN
[2024-02-09] MEDS: tranexamic acid 100mg/ml inj. ONE (09:52)
[2024-02-09] MEDS ORDERED: midazolam 1 mg/ML 2ml injection ONE (10:02)
[2024-02-09] MEDS ORDERED: ROPIVAcaine 0.5% (5mg/ml) 30ml vial ONE ×2 (10:28→12:01)
[2024-02-09] MEDS ORDERED: vancomycin 1,000mg inj ONE (10:28)
[2024-02-09] MEDS ORDERED: LIDOcaine 2% (20mg/ml) 5ml vial ONE (10:28)
[2024-02-09] MEDS ORDERED: ceFAZolin 1000mg inj ONE ×2 (10:29)
[2024-02-09] MEDS ORDERED: propofol inj 20 ML IV ONE (10:29)
[2024-02-09] MEDS ORDERED: dexamethasone sod phosphate 4mg/ml inj. ONE (10:29)
[2024-02-09] MEDS ORDERED: ePHEDrine 50MG/ML INJ. ONE (10:29)
[2024-02-09] MEDS ORDERED: phenylephrine 10mg/ml inj. -priapism dosing ONE (10:29)
[2024-02-09] MEDS: vancomycin 1,000mg inj ONE (11:29)
[2024-02-09] MEDS ORDERED: 0.9 % SODIUM CHLORIDE 10 ML VIAL ONE (12:01)
[2024-02-09] MEDS ORDERED: ondansetron/PF 4mg/2ml inj ONE (12:01)
[2024-02-09] MEDS: labetalol 20mg/4ml (5mg/ml) syringe IV PRN (12:35)
[2024-02-09] MEDS: acetaminophen 1,000mg/100ml IV 100 ML IV ONE (12:35)
[2024-02-09] MEDS: hydrALAZINE 20mg/ml inj. IV PRN (13:04)
[2024-02-09] MEDS ORDERED: oxyCODONE IR 5mg (immed. release) tablet PO PRN (13:15)
[2024-02-09] MEDS ORDERED: bisacodyl 10mg suppository rectal RC PRN (13:15)
[2024-02-09] MEDS ORDERED: HYDROmorphone inj. 0.5 MG/0.5 ML DISP.SYRIN IV PRN (13:15)
[2024-02-09] MEDS ORDERED: magnesium hydroxide 30ml (MOM) UD suspension PO PRN (13:15)
[2024-02-09] MEDS ORDERED: HYDROmorphone 1 mg/ml syringe IV PRN (13:15)
[2024-02-09] MEDS ORDERED: acetaminophen 325mg tablet PO PRN (13:15)
[2024-02-09] MEDS ORDERED: naloxone 0.4 mg/ml inj IV PRN (13:15)
[2024-02-09] MEDS: ceFAZolin/D5W- 1GM premix 50 ML IV SCH (15:10)
[2024-02-09] MEDS: potassium Cl 20mEq in NS 1,000 ML IV SCH (15:49)
[2024-02-09] MEDS: tranexamic acid inj. 500 MG in normal saline 100ml IV soln 95 ML IV ONE (15:49)
[2024-02-09] MEDS: gabapentin 300mg capsule PO SCH (20:20)
[2024-02-09] MEDS: sennosides 8.6mg tablet PO SCH (20:21)
[2024-02-09] MEDS: acetaminophen 325mg tablet PO PRN (20:22)
[2024-02-09] MEDS: vancomycin/NS 1 GM ADD-VANTAGE 250 ML IV SCH (20:36)
[2024-02-10 06:00] VITALS: BP 155/59; PULSE 73; RESP 14; TEMP 98.4; O2SAT 95
[2024-02-10 07:30] VITALS: RESP 14; O2SAT 95
[2024-02-10] MEDS: atorvastatin 20mg tablet PO SCH (07:36)
[2024-02-10] MEDS: enoxaparin 40mg/0.4ml syringe SQ SCH (07:37)
[2024-02-10 08:35] LABS: BASOPHILS % (AUTO) 0.2 % (0-1); EOSINOPHILS % (AUTO) 0 % (0-6); HEMATOCRIT 32.1 % (35.0-45.0); HEMOGLOBIN 10.4 g/dl (12.0-16.0); LYMPHOCYTES # (AUTO) 1.2 X10'3 (1.1-4.8); LYMPHOCYTES % (AUTO) 9.1 % (21-51); MEAN CORPUSCULAR HEMOGLOBIN 27.7 PG (27.0-31.0); MEAN CORPUSCULAR HGB CONC 32.5 g/dL (33.0-36.5); MEAN CORPUSCULAR VOLUME 85.4 FL (78-98); MEAN PLATELET VOLUME 8.6 FL (7.4-10.4); MONOCYTES # (AUTO) 1.2 X10'3 (0-0.9); MONOCYTES % (AUTO) 9.1 % (2-12); NEUTROPHILS # (AUTO) 11.1 X10'3 (1.8-7.7); NEUTROPHILS % (AUTO) 81.6 % (42-75); PLATELET COUNT 238 X10'3 (140-440); RED BLOOD COUNT 3.77 X10'6 (4.20-5.60); RED CELL DISTRIBUTION WIDTH 15.6 % (11.5-14.5); WHITE BLOOD COUNT 13.6 X10'3 (4.5-11.0)
[2024-02-10 09:07] LABS: ALANINE AMINOTRANSFERASE 15 U/L (12-78); ALBUMIN 2.9 G/DL (3.4-5.0); ALBUMIN/GLOBULIN RATIO 0.9 (1.1-1.5); ALKALINE PHOSPHATASE 48 IU/L (46-116); ANION GAP 7 (8-16); ASPARTATE AMINO TRANSFERASE 32 U/L (10-37); BILIRUBIN,TOTAL 0.5 MG/DL (0.1-1.0); BLOOD UREA NITROGEN 12 MG/DL (7-18); BUN/CREATININE RATIO 16.9 (10.0-20.0); CALCIUM 8.5 MG/DL (8.5-10.1); CHLORIDE 108 MMOL/L (99-107); CREATININE 0.71 MG/DL (0.40-0.90); GLUCOSE 91 MG/DL (70-104); MAGNESIUM 1.7 MG/DL (1.5-2.4); POTASSIUM 3.7 MMOL/L (3.5-5.1); SODIUM 138 MMOL/L (135-145); TOTAL PROTEIN 6.2 G/DL (6.4-8.2); eCRCL 53 ML/MIN; eGFR 80 ML/MIN
[2024-02-10 11:00] VITALS: BP 142/42; PULSE 77; RESP 16; TEMP 100; O2SAT 94
[2024-02-10 11:30] VITALS: TEMP 99.5
[2024-02-10] MEDS: oxyCODONE IR 5mg (immed. release) tablet PO PRN (13:41)
[2024-02-10 18:00] VITALS: BP 175/68; PULSE 88; RESP 16; TEMP 98.4; O2SAT 94
[2024-02-10] MEDS ORDERED: apixaban 5mg tablet PO SCH (20:00)
[2024-02-10 22:00] VITALS: BP 175/74; PULSE 79; RESP 16; TEMP 99.4; O2SAT 91
[2024-02-11 05:29] VITALS: BP 152/60; PULSE 72
[2024-02-11 06:30] VITALS: BP 165/73; PULSE 78; RESP 16; TEMP 98.6; O2SAT 93
[2024-02-11 06:41] LABS: BASOPHILS % (AUTO) 0.3 % (0-1); EOSINOPHILS # (AUTO) 0.1 X10'3 (0-0.9); EOSINOPHILS % (AUTO) 0.5 % (0-6); HEMATOCRIT 32.9 % (35.0-45.0); HEMOGLOBIN 10.8 g/dl (12.0-16.0); LYMPHOCYTES # (AUTO) 1.3 X10'3 (1.1-4.8); LYMPHOCYTES % (AUTO) 11.8 % (21-51); MEAN CORPUSCULAR VOLUME 84.8 FL (78-98); MEAN PLATELET VOLUME 8.2 FL (7.4-10.4); MONOCYTES % (AUTO) 9.2 % (2-12); NEUTROPHILS # (AUTO) 8.9 X10'3 (1.8-7.7); NEUTROPHILS % (AUTO) 78.2 % (42-75); PLATELET COUNT 218 X10'3 (140-440); RED BLOOD COUNT 3.87 X10'6 (4.20-5.60); RED CELL DISTRIBUTION WIDTH 15.4 % (11.5-14.5); WHITE BLOOD COUNT 11.4 X10'3 (4.5-11.0)
[2024-02-11 06:53] LABS: ALANINE AMINOTRANSFERASE 12 U/L (12-78); ALBUMIN 2.5 G/DL (3.4-5.0); ALBUMIN/GLOBULIN RATIO 0.7 (1.1-1.5); ALKALINE PHOSPHATASE 46 IU/L (46-116); ANION GAP 5 (8-16); ASPARTATE AMINO TRANSFERASE 25 U/L (10-37); BILIRUBIN,TOTAL 0.7 MG/DL (0.1-1.0); BLOOD UREA NITROGEN 9 MG/DL (7-18); BUN/CREATININE RATIO 14.1 (10.0-20.0); CALCIUM 7.9 MG/DL (8.5-10.1); CHLORIDE 105 MMOL/L (99-107); CREATININE 0.64 MG/DL (0.40-0.90); GLUCOSE 103 MG/DL (70-104); MAGNESIUM 1.6 MG/DL (1.5-2.4); POTASSIUM 3.6 MMOL/L (3.5-5.1); SODIUM 135 MMOL/L (135-145); TOTAL CARBON DIOXIDE 24.6 MMOL/L (24-32); eCRCL 59 ML/MIN; eGFR 90 ML/MIN
[2024-02-11 08:00] VITALS: RESP 16; O2SAT 93
[2024-02-11] MEDS: apixaban 5mg tablet PO SCH (08:26)
[2024-02-11 10:00] VITALS: BP 146/57; PULSE 62; RESP 16; TEMP 97.9; O2SAT 94
[2024-02-11 20:00] VITALS: RESP 16; O2SAT 93
[2024-02-12 06:24] VITALS: BP 186/73; PULSE 62; RESP 17; TEMP 97.1; O2SAT 94
[2024-02-12] MEDS: apixaban 5mg tablet PO SCH (07:49)
[2024-02-12 07:50] VITALS: BP_SYST 186; PULSE 62
[2024-02-12 07:57] LABS: ALANINE AMINOTRANSFERASE 14 U/L (12-78); ALBUMIN 2.3 G/DL (3.4-5.0); ALBUMIN/GLOBULIN RATIO 0.6 (1.1-1.5); ALKALINE PHOSPHATASE 46 IU/L (46-116); ANION GAP 4 (8-16); ASPARTATE AMINO TRANSFERASE 25 U/L (10-37); BILIRUBIN,TOTAL 0.6 MG/DL (0.1-1.0); BLOOD UREA NITROGEN 11 MG/DL (7-18); BUN/CREATININE RATIO 17.2 (10.0-20.0); CALCIUM 7.9 MG/DL (8.5-10.1); CHLORIDE 106 MMOL/L (99-107); CREATININE 0.64 MG/DL (0.40-0.90); GLUCOSE 111 MG/DL (70-104); MAGNESIUM 1.7 MG/DL (1.5-2.4); SODIUM 137 MMOL/L (135-145); TOTAL CARBON DIOXIDE 26.7 MMOL/L (24-32); TOTAL PROTEIN 6.1 G/DL (6.4-8.2); eCRCL 59 ML/MIN; eGFR 90 ML/MIN
[2024-02-12 08:00] VITALS: RESP 16; O2SAT 93
[2024-02-12 08:01] LABS: POTASSIUM 3.7 MMOL/L (3.5-5.1)
[2024-02-12 08:06] LABS: BASOPHILS % (AUTO) 0.5 % (0-1); EOSINOPHILS # (AUTO) 0.1 X10'3 (0-0.9); EOSINOPHILS % (AUTO) 1.1 % (0-6); HEMOGLOBIN 10.7 g/dl (12.0-16.0); LYMPHOCYTES % (AUTO) 12.1 % (21-51); MEAN CORPUSCULAR HEMOGLOBIN 28.1 PG (27.0-31.0); MEAN CORPUSCULAR HGB CONC 33.5 g/dL (33.0-36.5); MEAN PLATELET VOLUME 8.4 FL (7.4-10.4); MONOCYTES # (AUTO) 0.8 X10'3 (0-0.9); MONOCYTES % (AUTO) 8.9 % (2-12); NEUTROPHILS # (AUTO) 6.6 X10'3 (1.8-7.7); NEUTROPHILS % (AUTO) 77.4 % (42-75); PLATELET COUNT 216 X10'3 (140-440); RED BLOOD COUNT 3.81 X10'6 (4.20-5.60); RED CELL DISTRIBUTION WIDTH 15.3 % (11.5-14.5); WHITE BLOOD COUNT 8.5 X10'3 (4.5-11.0)
[2024-02-12 09:33] VITALS: RESP 16; O2SAT 93
== END 2024-02-12 13:15 | DRG 522 ==
LOC: ER 13:42 → ED HOLD 15:28 → ORTHO 4S 23:20
PROVIDERS: ADMIT Family Medicine; ATTEND Family Medicine
PROC: 0SRS019 Replacement of Left Hip Joint, Femoral Surface with Metal Synthetic Substitute, Cemented, Open Approach (ICD-10-PCS; principal; 2024-02-09 09:36)
DX: S72.092A Other fracture of head and neck of left femur, initial encounter for closed fracture (principal); E44.0 Moderate protein-calorie malnutrition; Z68.1 Body mass index [BMI] 19.9 or less, adult; I10 Essential (primary) hypertension; M85.852 Other specified disorders of bone density and structure, left thigh; E11.9 Type 2 diabetes mellitus without complications; Z82.49 Family history of ischemic heart disease and other diseases of the circulatory system; Z86.711 Personal history of pulmonary embolism; W18.30XA Fall on same level, unspecified, initial encounter; Y93.89 Activity, other specified; Y92.89 Other specified places as the place of occurrence of the external cause; Y99.8 Other external cause status
CPT/HCPCS: 36415; 71045; 72170; 73502; 80048; 80053; 81001; 82948; 83735; 83880; 84484; 85025; 85610; 85730; 86885; 86900; 86901; 87081; 93005; 97110; 97161; 97530; 99285; A4215; A4314; A4338; A4615; A4618; A6258; A6449; A7000; C1713; C1776; C9250; G0378; J0131; J0360; J0690; J0735; J1100; J1170; J1650; J2250; J2270; J2370; J2405; J2704; J2795; J3010; J3370; J3480; J3490; J7030; J7040; J7120

== ENCOUNTER 2025-02-19 09:22 | Emergency (ER) | payer BC, MEDICAID ==
[~2025-02-19] VITALS: Ht 160 cm; Wt 45.5 kg
[~2025-02-19 09:22] MED LIST changes: +APIX5TAB3 PO; -ASPI-1 PO; +ASPI-1265 PO; +ATOR20TA PO; -ATOR20TA66 PO; -CLOP-32 PO; +LISI5TAB22 PO; +SOTA80TA73 PO
[2025-02-19 09:24] VITALS: TEMP 97.8
--- NOTE | 2025-02-19 09:43 | Physician Documentation ---
History of Present Illness ~ Chief Complaint: Weakness Stated Complaint: MOBILITY/VISION ISSUE Time Seen by MD: 09:34 Primary Medical Doctor: [facility] Source: patient (10) HPI Patient comes in for evaluation of eye pain and dizziness. She reports she was fine yesterday except for some dizziness, but this morning awoke and felt weak in her legs, and unable to walk. She does report she was able to bear weight but only was able to take one step or so because she felt weak. She also felt dizzy and lightheaded, especially on attempting to stand. Patient is status post recent stroke with left-sided deficits, complains of no upper extremity weakness today. Has a secondary complaint she reports that her right eye is red and blurry and that she can not see out of it. She denies any associated fever, chest pain, cough, shortness of breath, or any other new focal neurologic deficits. Medication Reconciliation Allergies: Coded Allergies: No Known Allergies (Unverified , 07/31/20) Scheduled Apixaban (Eliquis), 1 TAB PO Q12H, (Reported) Aspirin (Aspirin), 1 TAB PO DAILY, (Reported) Atorvastatin Calcium* (Lipitor*), 1 TAB PO DAILY, (Reported) Lisinopril (Lisinopril), 1 TAB PO DAILY, (Reported) Sotalol Hcl* (Betapace*), 0.5 TAB PO Q12H, (Reported) Past Medical History Past Medical History: CVA/TIA/Stroke, Atrial Fibrillation, Coronary Artery Disease, High Cholesterol, Hypertension, Pulmonary Embolism, Diabetes Other Past Medical History: PID with stent to the lower extremity. Reports has had carotid ultrasounds but no procedure was necessary Past Surgical History: no surgical history Patient History: FH: [place] (myocardial infarction) FATHER, Onset:60 years & older FH: suicide MOTHER, Onset:50's - 60 Smoking Status: Current every day smoker Alcohol Use: None Drug Use: none Lives with: Family Lives In: Home Occupation: employed, retired Review of Systems All Other Systems at this time: Reviewed and Negative Physical Exam Vital Signs: Temperature: 97.8, Source: Oral, Heart Rate: 70, Respiratory Rate: 16, BP: 165/77, Pulse Oximetry: 98, Weight: 45.450 Oxygen Flow Rate: 0 Physical Exam General: Pt is awake, alert, oriented x4 in no acute distress Head: Normocephalic and atraumatic. Eyes: Left eye normal. Right eye with periorbital erythema and minimal swelling. Thick purulent discharge in eye with conjunctival injection and chemosis, pain with EOM. She has a nonreactive pupil. Arcus senilis bilaterally, with anterior chamber haziness to the right eye. Visual Acuity: Pt able to see outline of examiner, cannot make out hand or number of fingers held up. ENT: Mucous membranes moist. Neck: Supple. Chest: Clear to auscultation bilaterally, without rales, rhonchi, or wheezes. There is no accessory muscle use or retractions. Cardiac: Regular rate and rhythm without murmurs, gallops or rubs. Palpation of the chest wall is normal. Abd: Soft, nondistended, nontender, with normoactive bowel sounds. No guarding or rebound. Extremities: Within normal limits without cyanosis, clubbing, or edema. Skin: [place], warm and dry with no significant rash appreciated. Neuro: Cranial nerves II-XII intact. Her strength is 5/5 in the bilateral lower extremities, with strong flexion and extension at the knees. Progress Results/Orders Results/Orders Orders - IRIS BYRNES MD Ct Head (02/19/25 10:01) Ct Orbits (02/19/25 ) Culture Blood (02/19/25 10:01) Monitor (02/19/25 10:01) Saline Lock (02/19/25 10:01) Md To Page (02/19/25 11:26) Completed Orders - IRIS BYRNES MD Ct Head (02/19/25 10:01) Ct Orbits (02/19/25 ) Cbc/Diff (02/19/25 10:01) Electrocardiogram (02/19/25 10:01) Nothing By Mouth (02/19/25 Lunch) BMP (02/19/25 10:01) Hs Troponin I W Calculations (02/19/25 10:01) Hs Troponin I W Calculations (02/19/25 12:01) Hs Troponin I W Calculations (02/19/25 13:01) Lacticsepsis (02/19/25 10:01) Ceftriaxone/N2e-Jfwtqzbv 1gm (Rocephin 1 (02/19/25 10:05) Vancomycin/Ns 1 Gm [place] (Vancomyc (02/19/25 10:05) Sotalol Tablet (Betapace) (02/19/25 12:30) Proparacaine Ophth Solution (Alcaine Oph (02/19/25 14:15) Medications Received in ER Medications (Trade) Dose Ordered Sig/Maame Route PRN Reason Start Time Stop Time Status Last Admin Dose Admin (Betapace) 40 mg ONCE ONCE PO 02/19/25 12:30 02/19/25 12:35 DC 02/19/25 13:21 40 MG Vital Signs 02/19/25 02/19/25 02/19/25 02/19/25 09:24 09:46 11:15 12:35 Temp 97.8 Pulse 70 66 64 Resp 16 15 15 B/P (MAP) 165/77 175/99 (124) 187/91 (123) Pulse Ox 98 98 98 O2 Flow Rate 0 0 02/19/25 02/19/25 13:21 15:29 Pulse 65 57 Resp 16 B/P (MAP) 165/71 Pulse Ox 98 Laboratory Tests Test 02/19/25 10:33 02/19/25 11:56 02/19/25 15:04 White Blood Count 9.5 Red Blood Count 4.56 Hemoglobin 12.8 Hematocrit 38.9 Mean Corpuscular Volume 85.4 Mean Corpuscular Hemoglobin 28.1 Mean Corpuscular Hemoglobin Concent 32.9 L Red Cell Distribution Width 14.8 H Platelet Count 302 Mean Platelet Volume 7.8 Neutrophils (%) (Auto) 77.3 H Lymphocytes (%) (Auto) 14.1 L Monocytes (%) (Auto) 5.3 Eosinophils (%) (Auto) 2.8 Basophils (%) (Auto) 0.5 Neutrophils # (Auto) 7.3 Lymphocytes # (Auto) 1.3 Monocytes # (Auto) 0.5 Eosinophils # (Auto) 0.3 Basophils # (Auto) 0.0 CBC Comment Sodium Level 142 Potassium Level 3.9 Chloride Level 107 Carbon Dioxide Level 28.3 Anion Gap 7 L Blood Urea Nitrogen 14 Creatinine 0.77 Estimated GFR/1.73 m2 73 BUN/Creatinine Ratio 18.2 Glucose Level 121 H Lactic Acid Level 0.6 Calcium Level 8.9 Troponin I High Sensitivity 14 13 15 Albumin 3.6 Chemistry Comments Troponin I High Sens Percent Delta 7 15 Troponin I Hi Sens Absolute Change -1 2 Microbiology Date/Time Source Procedure Growth Status 02/19/25 10:40 Blood Arm Left Blood Culture - Preliminary NEGATIVE (LESS THAN 24 HOURS) Resulted Re-Evaluation Re-Evaluation #1: Re-Evaluation Time: 11:[address] reviewed; no apparent post septal inflammatory changes. Call placed to Dr. Oneal, Ophthalmology, prior to arranging transfer if pt can be admitted here. Re-Evaluation #2: Re-Evaluation Time: 15:[address] Oneal in ED to consult on patient. She refused to consider being transferred to a tertiary occur sent her out of town. During his consultation the patient had intravitreal injection of vancomycin and ceftazidime. Per his hand written consultation note, the patient has no limitations on discharge, is free to take Tylenol or ibuprofen as needed, and will call their office tomorrow morning to make an appointment on Thursday to be seen by one of his partners, as he will be out of town. Consults/PCP Consults/PCP : Time Call Requested: 11:25 Consult Reason/Comments: Dr. Oneal Additional Comment 11:[address] Oneal. He will come in and perform an intravitreal injection. Patient was offered the better alternative of transfer to a tertiary care facility in [facility] for intravitreal injection as well as vitrectomy, but adamantly refuses to go out of town. Dr. Oneal is on his way to perform the injection. Dosage discussed with pharmacy. Medical Decision Making Additional Information Patient presenting with eye redness, visual acuity changes, pain with range of motion of the vision. Because of her anterior chamber haziness, significant p urulent drainage, and lid redness, it was felt more likely that she had a preseptal cellulitis/conjunctivitis. CT scan showed no evidence of postseptal inflammatory changes. Diagnosis per Dr. Oneal is endophthalmitis, and patient has been told numerous times that even despite treatment here with IV an intravitreal antibiotics she still has a significant risk of poor outcome. She is to call for close ophthalmologic follow up on Thursday and has the information. Her son was also present for the discharge instructions. She understands to return to the emergency department for any worsening of her condition. Departure Time of Disposition: 15:16 Disposition: 01 HOME / SELF CARE / HOMELESS Impression: Primary Impression: Endophthalmitis, acute Qualified Codes: H44.001 - Unspecified purulent endophthalmitis, right eye Condition: Stable Discharge Instructions: General Discharge Instructions Additional Instructions: You were diagnosed with endophthalmitis, which has an infection of the front part of your eye. This is very severe, and necessitated the injection into your eye as well as the IV antibiotics. You do not need any further outpatient oral antibiotics at this point, but it is very important that you call [facility] ([phone]) tomorrow morning to arrange follow up with one of their ophthalmologists on Thursday, per Dr. Oneal's instructions. You may take Tylenol or ibuprofen for discomfort, but do not have any other limitations. Return to an emergency department if you develop fever or any worsening symptoms or any other concerns. Referrals: NO PRIMARY CARE PROVIDER (PCP) Education Educated: Patient Educated regarding: diagnosis, treatment IRIS BYRNES MD Feb 19, 2025 09:43
[2025-02-19] MEDS ORDERED: VANCOMYCIN 1GM 200ML H20 (PEG) 200 ML IV ONE (10:05)
--- NOTE | 2025-02-19 10:12 | ELECTROCARDIOGRAPH REPORT ---
[facility] Test Date: 2025-02-19 Test Time: 10:10:39 Pat Name: ARACELI SANCHEZ Department: [facility] Patient ID: [facility]-[id number] Room: Gender: F Bonsai Tender: : 1945 Requested By: IRIS BYRNES Order Number: [id number] Reading MD: Measurements Intervals [place] Rate: 62 P: 62 MD: 171 QRS: -8 QRSD: 105 T: 56 QT: 427 QTc: 434 Interpretive Statements Sinus rhythm Please click the below link to view image of tracing.
--- NOTE | 2025-02-19 10:38 | RADIOLOGY REPORT ---
EXAM: CT CT HEAD INDICATION: Dizziness TECHNIQUE: CT of the head without intravenous contrast. Coronal and sagittal reformatted images are s ubmitted. Radiation Dose : 1. Head: CT Dose: CTDI volume is 50.1 mGy. Dose-length product is 916.9 mGy*cm The dose indicators for CT are the volume Computed Tomography (CT) Dose Index (CTDIvol) and the Dose Length Product (DLP), and are measured in units of mGy and mGy-cm, respectively. These indicators are not patient dose, but values generated from the CT scanner acquisition factors. The report includes radiation exposure data for exposures received during this examination. All CT scans at this medical facility are performed using dose modulation techniques as appropriate to a performed exam including the following: Automated exposure control was utilized; adjustment of the MA and/or KV according to patient size; and use of iterative reconstruction technique. COMPARISON: MR MRI HEAD on DOS: 05/06/23, CT CT STROKE ALERT on DOS: 05/05/23, CT HEAD on DOS: 06/09/21 FINDINGS: There is no evidence of acute intracranial hemorrhage, extra-axial collection, mass effect, midline s hift, herniation or hydrocephalus. There are periventricular and subcortical hypodensities, nonspecific, but likely reflecting sequelae of chronic microvascular ischemic changes. Chronic infarct in the left perez radiata and thalamus. The ventricles, sulci and cisterns are age appropriate. The valladares-white differentiation is intact. The visualized paranasal sinuses and mastoid air cells are clear. No depressed calvarial fracture. The surrounding soft tissues are unremarkable. IMPRESSION: 1. No acute intracranial abnormality.
[2025-02-19 11:00] LABS: BASOPHILS % (AUTO) 0.5 % (0-1); EOSINOPHILS # (AUTO) 0.3 X10'3 (0-0.9); EOSINOPHILS % (AUTO) 2.8 % (0-6); HEMATOCRIT 38.9 % (35.0-45.0); HEMOGLOBIN 12.8 g/dl (12.0-16.0); LYMPHOCYTES # (AUTO) 1.3 X10'3 (1.1-4.8); LYMPHOCYTES % (AUTO) 14.1 % (21-51); MEAN CORPUSCULAR HEMOGLOBIN 28.1 PG (27.0-31.0); MEAN CORPUSCULAR HGB CONC 32.9 g/dL (33.0-36.5); MEAN CORPUSCULAR VOLUME 85.4 FL (78-98); MEAN PLATELET VOLUME 7.8 FL (7.4-10.4); MONOCYTES # (AUTO) 0.5 X10'3 (0-0.9); MONOCYTES % (AUTO) 5.3 % (2-12); NEUTROPHILS # (AUTO) 7.3 X10'3 (1.8-7.7); NEUTROPHILS % (AUTO) 77.3 % (42-75); PLATELET COUNT 302 X10'3 (140-440); RED BLOOD COUNT 4.56 X10'6 (4.20-5.60); RED CELL DISTRIBUTION WIDTH 14.8 % (11.5-14.5); WHITE BLOOD COUNT 9.5 X10'3 (4.5-11.0)
[2025-02-19 11:08] LABS: ALBUMIN 3.6 G/DL (3.4-5.0); ANION GAP 7 (8-16); BLOOD UREA NITROGEN 14 MG/DL (7-18); BUN/CREATININE RATIO 18.2 (10.0-20.0); CALCIUM 8.9 MG/DL (8.5-10.1); CHLORIDE 107 MMOL/L (99-107); CREATININE 0.77 MG/DL (0.40-0.90); GLUCOSE 121 MG/DL (70-104); POTASSIUM 3.9 MMOL/L (3.5-5.1); SODIUM 142 MMOL/L (135-145); TOTAL CARBON DIOXIDE 28.3 MMOL/L (24-32); eCRCL 44 ML/MIN; eGFR 73 ML/MIN
--- NOTE | 2025-02-19 11:16 | RADIOLOGY REPORT ---
INDICATION: Dizziness EXAM DATE: 02/19/2025 10:15 AM COMPARISON: None TECHNIQUE: CT of the orbits without intravenous contrast. Coronal and sagittal reformatted images ar evelyn submitted. RADIATION DOSE: CTDIvol: 49.0 mGy, DLP: 616.95 mGy*cm FINDINGS: Right periorbital soft tissue swelling. No postseptal inflammatory changes. No acute orbital fracture . Paranasal sinuses and mastoid air cells are patent. IMPRESSION: 1. Right periorbital cellulitis.
[2025-02-19] MEDS: CefTRIAXone/D5W-Rocephin 1gm 50 ML IV ONE (11:46)
[2025-02-19] MEDS ORDERED: CEFTAZIDIME IVT ONE (12:25)
[2025-02-19] MEDS ORDERED: WATER FOR INJECTION IVT ONE ×4 (12:25→12:45)
[2025-02-19] MEDS: vancomycin/NS 1 GM ADD-VANTAGE 250 ML IV ONE (12:31)
[2025-02-19] MEDS ORDERED: VANCOMYCIN IVT ONE ×3 (12:35→12:45)
[2025-02-19] MEDS ORDERED: STERILE IVT ONE ×3 (12:35→12:45)
[2025-02-19] MEDS: CEFTAZIDIME IVT ONE (13:00)
[2025-02-19] MEDS: NORMAL SALINE IVT ONE ×2 (13:00)
[2025-02-19] MEDS: VANCOMYCIN IVT ONE (13:00)
[2025-02-19] MEDS: cyclopentolate 1% 2ml ophthalmic solution RIGHTEYE SCH (13:20)
[2025-02-19] MEDS: sotalol HCl 40mg (1/2 tablet) PO ONE (13:21)
[2025-02-19] MEDS: proparacaine 0.5% ophthalmic drops 15ml EACHEYE ONE (14:23)
[2025-02-19] MEDS: proparacaine 0.5% ophthalmic drops 15ml RIGHTEYE ONE (14:24)
[2025-02-19 15:29] VITALS: BP 165/71; PULSE 57; RESP 16; O2SAT 98
== END 2025-02-19 15:37 | disposition home or self-care (01) ==
LOC: ER 09:23
DX: H44.001 Unspecified purulent endophthalmitis, right eye (principal); E11.9 Type 2 diabetes mellitus without complications; E78.00 Pure hypercholesterolemia, unspecified; F17.200 Nicotine dependence, unspecified, uncomplicated; I10 Essential (primary) hypertension; I25.10 Atherosclerotic heart disease of native coronary artery without angina pectoris; I48.91 Unspecified atrial fibrillation; Z86.73 Personal history of transient ischemic attack (TIA), and cerebral infarction without residual deficits; Z79.82 Long term (current) use of aspirin
CPT/HCPCS: 36415; 70450; 70480; 80048; 83605; 84484; 85025; 87040; 93005; 96365; 96367; 99285; J0696; J3370

== ENCOUNTER 2025-08-20 12:46 | Emergency (ER) | payer BC, MEDICAID ==
[~2025-08-20] VITALS: Ht 160 cm; Wt 40.5 kg
[2025-08-20 12:47] VITALS: BP 146/71; PULSE 84; RESP 16; TEMP 98.5; O2SAT 99
--- NOTE | 2025-08-20 14:12 | Physician Documentation ---
History of Present Illness ~ Chief Complaint: Bite-animal Stated Complaint: ANIMAL BITE Time Seen by MD: 14:05 Primary Medical Doctor: [facility] HPI 80 yr old female who presents to the emergency department reporting that she was bit by a stray cat last night at the base of the right thumb. She reports that she has seen this cat before, has never been bit, as she feeds it regularly. She denies chills or fever, nausea or vomiting, she reports she feels basically at her baseline. Tetanus within 5 years?: No Medication Reconciliation Allergies: Coded Allergies: No Known Allergies (Unverified , 07/31/20) Scheduled Apixaban (Eliquis), 1 TAB PO Q12H, (Reported) Aspirin (Aspirin), 1 TAB PO DAILY, (Reported) Atorvastatin Calcium* (Lipitor*), 1 TAB PO DAILY, (Reported) Lisinopril (Lisinopril), 1 TAB PO DAILY, (Reported) Sotalol Hcl* (Betapace*), 0.5 TAB PO Q12H, (Reported) Past Medical History Past Medical History: CVA/TIA/Stroke, Atrial Fibrillation, Coronary Artery Disease, High Cholesterol, Hypertension, Pulmonary Embolism, Diabetes Past Surgical History: no surgical history Patient History: FH: [place] (my[place] infarction) FATHER, Onset:60 years & older FH: suicide MOTHER, Onset:50's - 60 Alcohol Use: None Drug Use: none Lives with: Family Lives In: Home Occupation: employed, retired Review of Systems ROS As stated above in the HPI, otherwise all systems are reviewed and negative. Physical Exam Vital Signs: Temperature: 98.5, Source: Oral, Heart Rate: 84, Respiratory Rate: 16, BP: 146/71, Pulse Oximetry: 99, Weight: 40.450 Oxygen Flow Rate: 0 Physical Exam General: Alert, no apparent distress. Neck: Full range of motion. Respiratory: Lungs clear, no respiratory distress. Chest: No accessory muscle use. Cardiovascular: Regular rate and rhythm, no murmurs. Gastrointestinal: Soft, nontender, nondistended. Bowels sounds present. Extremities: Normal range of motion, no deformity. Neurologic: Oriented x4. Psychiatric: Normal mood and affect. Skin: Normal color, warm and dry. 1+ right hand edema with puncture wound at base of right thumb. Reduced/painful ROM right thumb. Progress Results/Orders Results/Orders Orders - REBECA CHANCE DERRICK BOAT LEVERMAN Dressing Orders (08/20/25 14:13) Wound Care Orders (08/20/25 14:13) Rabies Vaccine (Pcec)/Pf (Rabavert Rabie (08/20/25 14:30) Rabies Immune Globulin/Pf Inj (Hyperrab (08/20/25 14:26) Completed Orders - REBECA CHANCE [employer] Tetanus/Pertuss/Diph Acell/Pf (Boostrix (08/20/25 14:15) Bacitracin Ointment (Bacitracin Ointment (08/20/25 14:15) Amox Tr/Potassium Clavulanate (Augmentin (08/20/25 14:20) Vital Signs 08/20/25 12:47 Temp 98.5 Pulse 84 Resp 16 B/P (MAP) 146/71 Pulse Ox 99 O2 Flow Rate 0 Medical Decision Making Additional information obtaine: other Findings She is accompanied by a friend who helps provide hx. Differential Dx:Considerations: Include: Abrasion, Allergic reaction, Anaphylaxis, Cellulitis, Contusion, Fracture, Hematoma, Insect envenomation, Laceration, Neurovascular injury, Punture wound, Retained foreign body, Urticaria Additional Comment Most Likely Diagnoses Pasteurella multocida cellulitis: This is the most common pathogen in cat bite infections, accounting for 54.1% of animal-related P. multocida infections. Cat bites typically cause rapid-onset cellulitis (often within 24 hours), which matches this patient's presentation of erythema and swelling developing overnight. P. multocida causes local skin and soft tissue infection in 11.6% of cases and is particularly common in elderly patients. [1] Polymicrobial bite-wound cellulitis: Cat bites introduce multiple organisms from the cat's oral jeannette and the patient's skin jeannette, including streptococci, staphylococci, Moraxella spp., saprophytic Neisseria spp., and various anaerobes. The deep puncture nature of cat teeth facilitates inoculation of bacteria into deeper tissues. It is not uncommon for animal bite wounds to be polymicrobial in nature. [2] Staphylococcus aureus or Streptococcal cellulitis: These common skin pathogens can cause secondary infection at bite sites. Cellulitis typically presents with erythema, warmth, swelling, and painthe classic signs of inflammation (dolor, calor, rubor, and tumor). The elderly are at higher risk for skin and soft tissue infections due to multiple comorbidities and age-related skin changes. [3] Early infectious flexor tenosynovitis: Given the location at the base of the thumb and presence of swelling, early tenosynovitis must be considered even if classic Kanavel signs are not yet fully developed. Cat bites to the hand carry particularly high risk for deep space infections due to the penetrating nature of cat teeth. Capnocytophaga canimorsus infection: While more commonly associated with dog bites, this organism can also be found in cat bites and should be considered, pa rticularly given the patient's age. [2] Most Important Not to Miss Diagnoses Infectious flexor tenosynovitis: This deep space infection requires emergent hand surgery consultation. Assess for Kanavel's four cardinal signs: (1) symmetric swelling of the affected digit, (2) finger held in flexed position, (3) pain with passive extension, and (4) tenderness along the flexor tendon s jackeline. Even if not all signs are present initially, close monitoring is essential as FTS can rapidly progress to structural damage, amputation, or . Any concern for FTS warrants immediate surgical consultation. [4] Necrotizing fasciitis: Though rare, this carries high mortality and requires urgent surgical debridement. Arreaga distinguishing features include pain out of proportion to examination findings, skin necrosis, bullae, cutaneous numbness, fever, or crepitus. Systemic signs like fever may be absent in elderly patients. A high index of suspicion is needed, and any concern warrants immediate surgical evaluation. [3] Septic arthritis or osteomyelitis: Cat bites can penetrate to bone or joint spaces, particularly in the hand. While less likely at this early stage without systemic symptoms, these complications can develop if infection is not adequately treated. Risk factors include age older than 80 years and diabetes mellitus. Monitor for worsening pain, decreased range of motion, or systemic signs. [5] Departure Time of Disposition: 14:25 Disposition: 01 HOME / SELF CARE / HOMELESS Impression: Primary Impression: Cat bite Condition: Stable Discharge Instructions: Animal Bite, Adult Additional Instructions: ### Cat Bite Follow-Up Instructions Important Instructions After Your Cat Bite You were treated today for a cat bite to your right hand. Because the cat was a stray and cannot be tested for rabies, you received the first dose of rabies vaccine and rabies immunoglobulin as a precaution. It is very important that you follow these instructions carefully. Contact Animal Control Immediately You must contact your local animal control office as soon as possible to report the cat bite and help them locate the cat. This is important for several reasons: - If the cat can be caught and observed for 10-14 days, and it remains healthy during that time, your rabies vaccine series can be stopped early.[][1] - If the cat becomes sick during observation, it can be tested for rabies to confirm whether you need to complete the full vaccine series.[][1] - Reporting the bite helps protect other people in your community from being bitten by the same animal.[][2] Animal control has the training and equipment to safely catch stray animals. Do not try to catch the cat yourself. Return for Rabies Vaccine Doses You received your first rabies vaccine dose today (Day 0). You must return for additional vaccine doses on: - Day 3 (in 3 days) - Day 7 (in 7 days) - Day 14 (in 14 days) These vaccines are critical to prevent rabies, which is almost always fatal once symptoms start.[] Do not miss these appointments.[3] If the cat is found and tested negative for rabies, or if it remains healthy after 10-14 days of observation, your doctor may tell you that you can stop the vaccine series.[][1] Wound Recheck in 24 Hours You need to have your wound rechecked within 24 hours. You can return to this emergency department or see your primary care doctor. Cat bites often cause infections that develop quickly, and early treatment is important.[][4][2] At your recheck appointment, the doctor will examine your wound to make sure: - The infection is not getting worse - The antibiotics are working - You do not have signs of a deeper infection Warning Signs: Return to the Emergency Department Immediately If You Notice: - Increased redness, swelling, or warmth spreading from the bite area - Red streaks going up your arm from the bite - Pus or drainage from the wound - Fever (temperature over 100.4F or 38C) - Increased pain that is not controlled by your pain medication - Difficulty moving your thumb or fingers - Numbness or tingling in your hand or fingers - Swelling that gets worse despite keeping your hand elevated ### References 1. Current Status of Rabies and Prospects for Elimination. Brandon AR, Francois AC, Karla DL, et al. Lancet ([place], [place]). 2014;384(7235):9653-99. doi:10.1016/A1549-4111([id number]. 2. Bite-Related and Septic Syndromes Caused by Cats and Dogs. Jenniferer RL, Carver AP, Mizchi M, Bear J, Gompf S. The Lancet. Infectious Diseases. 2009;9(7):439-47. doi:10.1016/O1987-5381([id number]. 3. Risk of Rabies and Implications for Postexposure Prophylaxis Administration in the . Yvette K, Joanna Y, Raymond J, Jose Alejandro S, Juan RM. [employer]. 2022;6(6):[id number]. doi:10.1001/jamanetworkopen.2022.46874. 4. Dog and Cat Bites: Rapid Evidence Review. Carlos DD, Fozia FO. [employer]. 2022;108(5):501-505. Referrals: NO PRIMARY CARE PROVIDER (PCP) Prescriptions Amox Tr/Potassium Clavulanate (Augmentin 875-125 Tablet) 1 Each Tablet 1 TAB PO Q12H for 10 Days, #20 TAB Prov: REBECA CHANCE NP 08/20/25 Education Educated: Patient, Family Educated regarding: diagnosis, treatment, prognosis, need for follow up Signature Scribe Signature: x Attestation: The note accurately reflects work and decisions made by me.Rebeca Carrasquillo NP 08/20/25 14:16 REBECA CHANCE NP Aug 20, 2025 14:12
[2025-08-20] MEDS ORDERED: AMOX-117 PO (14:29)
[2025-08-20] MEDS: rabies immune globulin/PF 150 unit/ml inj IMVAC STA (14:47)
[2025-08-20] MEDS: amox tr/potassium clavulanate 875/125mg TAB PO ONE (14:49)
[2025-08-20] MEDS: TETanus/Pertussis (Acell)/Diphther VAC/PF (Tdap-Adult) 0.5ml syringe IMVAC ONE (14:52)
[2025-08-20] MEDS: bacitracin 15gm ointment TP ONE (14:55)
== END 2025-08-20 15:00 | disposition home or self-care (01) ==
LOC: ER 12:47
DX: S61.031A Puncture wound without foreign body of right thumb without damage to nail, initial encounter (principal); E11.9 Type 2 diabetes mellitus without complications; E78.00 Pure hypercholesterolemia, unspecified; I10 Essential (primary) hypertension; I25.10 Atherosclerotic heart disease of native coronary artery without angina pectoris; I48.91 Unspecified atrial fibrillation; Z86.711 Personal history of pulmonary embolism; Z86.73 Personal history of transient ischemic attack (TIA), and cerebral infarction without residual deficits; Z79.899 Other long term (current) drug therapy; Z79.82 Long term (current) use of aspirin; W55.01XA Bitten by cat, initial encounter; Y93.89 Activity, other specified; Y92.89 Other specified places as the place of occurrence of the external cause; Y99.8 Other external cause status
CPT/HCPCS: 90471; 90715; 99283